=== PATIENT | male | born 1930 | race Caucasian/White ===

== ENCOUNTER 2016-06-09 07:03 | Inpatient (IN) | payer MEDICARE, OTHER ==
[2016-06-09] MEDS ORDERED: Albuterol/Ipratropium 3.0-0.5 MG/3 ML Neb Soln ONE (07:14)
[2016-06-09] MEDS ORDERED: Acetaminophen 500 MG Tab PO ONE (07:15)
[2016-06-09] MEDS ORDERED: Albuterol/Ipratropium 3.0-0.5 MG/3 ML Neb Soln NEB ONE (07:20)
[2016-06-09] MEDS ORDERED: Sodium Chloride 0.9% 1,000 ML IV ONE (07:40)
--- NOTE | 2016-06-09 07:53 | EDM.PDOC ---
ED HPI GENERAL MEDICAL PROBLEM - General Chief Complaint: General Stated Complaint: SOB Time Seen by Provider: 06/09/16 07:40 Source of Information: Reports: Patient History Limitations: Reports: No limitations - History of Present Illness INITIAL COMMENTS - FREE TEXT/NARRATIVE: History of present illness: [86-year-old male presenting with complaints of shortness of breath, fever, and general feelings of being unwell. 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 Patient also has a history of respiratory compromise you very to a caustic lung exposure several decades ago] Review of systems: As per history of present illness and below otherwise all systems reviewed and negative. Past medical history: As per history of present illness and as reviewed below otherwise noncontributory. Surgical history: As per history of present illness and as reviewed below otherwise noncontributory. Social history: No reported history of drug or alcohol abuse. Family history: As per history of present illness and as reviewed below otherwise noncontributory. Physical exam: HEENT: Atraumatic, normocephalic, pupils reactive, negative for conjunctival pallor or scleral icterus, mucous membranes moist, throat clear, neck supple, nontender, trachea midline. Lungs: Clear to auscultation, breath sounds diminished throughout but equal bilaterally, chest nontender. Heart: S1S2, regular, negative for clicks, rubs, or JVD. Abdomen: Soft, nondistended, nontender. Negative for masses or hepatosplenomegaly. Negative for costovertebral tenderness. Pelvis: Stable nontender. Genitourinary: Deferred. Rectal: Deferred. Extremities: Atraumatic, negative for cords or calf pain. Neurovascular unremarkable. Neuro: Awake, alert, oriented. Cranial nerves II through XII unremarkable. Cerebellum unremarkable. Motor and sensory unremarkable throughout. Exam nonfocal. Upon entry patients requiring 6 L of O2 via nasal cannula to maintain sats in the 90s. Patient noted having minimal increase in his troponin was initial check recheck indicates A. minimal decrease but no elevation x-ray return with signs of pneumonia patient requiring oxygen to stay greater than 90 percentile unable to sustain greater than 90% on room air decision to admit to inpatient status placed on O2 requirements that are not patient's baseline. Diagnostics: [CBC, CMP, troponin, lactic acid, LDH, EKG, chest x-ray, EKG, blood cultures x2, ] Therapeutics: [DuoNeb, Tylenol] Impression: [Right middle lobe pneumonia] Plan: [Admit to] Definitive disposition and diagnosis as appropriate pending reevaluation and review of above. - Related Data Allergies Allergy/AdvReac Type Severity Reaction Status Date / Time Penicillins Allergy Cannot Verified 06/09/16 07:56 Remember Home Meds: Home Meds Aspirin [Adult Low Dose Aspirin EC] 81 mg PO DAILY 04/09/13 [History] Budesonide/Formoterol [Symbicort 160-4.5 Mcg Inhaler] 1 puff INH ASDIRECTED PRN 04/09/13 [History] Lisinopril [Prinivil] 2.5 mg PO DAILY 04/09/13 [History] Metoprolol Succinate 25 mg PO DAILY 04/09/13 [History] Omeprazole 20 mg PO DAILY PRN 04/09/13 [History] Pyridostigmine [Mestinon] 60 mg PO TID 04/09/13 [History] Simvastatin [Zocor] 10 mg PO BEDTIME 04/09/13 [History] Montelukast Sodium [Singulair] 10 mg PO DAILY 05/24/16 [History] Fluticasone Propionate [Allergy Relief] 1 spray IN BID PRN 06/09/16 [History] Lysine HCl [l-Lysine] 500 mg PO DAILY 06/09/16 [History] Promethazine HCl/Codeine [Prometh-Codein 6.25-10 mg/5 ml] 10 - 15 ml PO Q4H PRN 06/09/16 [History] Ubidecarenone [Coq-10] 100 mg PO DAILY 06/09/16 [History] Warfarin [Coumadin] 4.5 mg PO MOWETHFRSA 06/09/16 [History] Warfarin [Coumadin] 6 mg PO SUTU 06/09/16 [History] guaiFENesin/Dextromethorphan [Tussin DM Cough & Chest] 5 ml PO Q4H PRN 06/09/16 [History] Social & Family History - Tobacco Use Smoking Status *Q: Never Smoker Second Hand Smoke Exposure: No - Caffeine Use Caffeine Use: Reports: Coffee - Alcohol Use Days Per Week of Alcohol Use: 1 Number of Drinks Per Day: 1 Total Drinks Per Week: 1 - Recreational Drug Use Recreational Drug Use: No ED ROS GENERAL - Review of Systems Review Of Systems: See Below (See history of present illness) ED EXAM, GENERAL - Physical Exam Exam: See Below (See history of present illness) Course - Vital Signs Last Recorded V/S: Last Vital Signs Temp 37.6 C 06/09/16 10:39 Pulse 97 06/09/16 10:39 Resp 20 06/09/16 10:39 BP 124/69 06/09/16 08:58 Pulse Ox 86 L 06/09/16 10:47 - Orders/Labs/Meds Orders: Active Orders 24 hr Category Date Time Status EKG Documentation Completion [RC] STAT Care 06/09/16 07:12 Active RT Aerosol Therapy [RC] ASDIRECTED Care 06/09/16 07:42 Active Chest 2V [CR] Stat Exams 06/09/16 07:12 Taken CULTURE BLOOD [BC] Stat Lab 06/09/16 07:30 Received CULTURE BLOOD [BC] Stat Lab 06/09/16 07:40 Received Ibuprofen [Motrin] Med 06/09/16 09:28 Active 600 mg PO Q6H PRN Sodium Chloride 0.9% [Normal Saline] 1,000 ml Med 06/09/16 07:40 Active IV STAT Blood Culture x2 Reflex Set [OM.PC] Stat Oth 06/09/16 07:12 Ordered Medication Orders Sodium Chloride (Normal Saline) 1,000 mls @ 100 mls/hr IV STAT ONE Stop: 06/09/16 17:39 Last Admin: 06/09/16 07:44 Dose: 100 mls/hr Ibuprofen (Motrin) 600 mg PO Q6H PRN PRN Reason: Fever Last Admin: 06/09/16 10:12 Dose: 600 mg Labs: Laboratory Tests 06/09/16 06/09/16 06/09/16 Range/Units 07:30 07:30 07:30 WBC 11.5 H (5.0-10.0) 10^3/uL RBC 4.57 (4.50-6.00) 10^6/uL Hgb 15.8 (14.0-18.0) g/dL Hct 47.0 (40.0-54.0) % MCV 102.8 H (82.0-94.0) fL MCH 34.6 H (27.0-32.0) pg MCHC 33.6 (33.0-38.0) g/dL RDW Coeff of Vladislav 12.3 (11.0-15.0) % Plt Count 192 (150-400) 10^3/uL MPV 9.2 fL PT 24.5 H (9.7-12.3) SEC INR 2.27 H (0.92-1.18) Sodium 141 (136-145) mEq/L Potassium 4.4 (3.5-5.0) mEq/L Chloride 105 (98-106) mEq/L Carbon Dioxide 28 (21-32) mmol/L BUN 17 (7-18) mg/dL Creatinine 1.1 (0.7-1.3) mg/dL Est Cr Clr Drug Dosing 40.36 mL/min Estimated GFR (MDRD) > 60 (>=60) mL/min Glucose 111 H (75-99) mg/dL Lactic Acid (0.4-2.0) mmol/L Calcium 8.5 (8.4-10.1) mg/dL Magnesium 1.7 L (1.8-2.4) mg/dL Total Bilirubin 1.0 (0.0-1.0) mg/dL AST 19 (15-37) U/L ALT 28 (12-78) U/L Alkaline Phosphatase 55 (46-116) U/L Lactate Dehydrogenase 205 H (100-190) U/L Creatine Kinase 181 (35-232) U/L Troponin I 0.240 H (0.00-0.06) ng/mL Total Protein 6.6 (6.4-8.2) g/dL Albumin 3.0 L (3.4-5.0) g/dL 06/09/16 06/09/16 Range/Units 07:30 10:35 WBC (5.0-10.0) 10^3/uL RBC (4.50-6.00) 10^6/uL Hgb (14.0-18.0) g/dL Hct (40.0-54.0) % MCV (82.0-94.0) fL MCH (27.0-32.0) pg MCHC (33.0-38.0) g/dL RDW Coeff of Vladislav (11.0-15.0) % Plt Count (150-400) 10^3/uL MPV fL PT (9.7-12.3) SEC INR (0.92-1.18) Sodium (136-145) mEq/L Potassium (3.5-5.0) mEq/L Chloride (98-106) mEq/L Carbon Dioxide (21-32) mmol/L BUN (7-18) mg/dL Creatinine (0.7-1.3) mg/dL Est Cr Clr Drug Dosing mL/min Estimated GFR (MDRD) (>=60) mL/min Glucose (75-99) mg/dL Lactic Acid 1.6 (0.4-2.0) mmol/L Calcium (8.4-10.1) mg/dL Magnesium (1.8-2.4) mg/dL Total Bilirubin (0.0-1.0) mg/dL AST (15-37) U/L ALT (12-78) U/L Alkaline Phosphatase (46-116) U/L Lactate Dehydrogenase (100-190) U/L Creatine Kinase 170 (35-232) U/L Troponin I 0.238 H (0.00-0.06) ng/mL Total Protein (6.4-8.2) g/dL Albumin (3.4-5.0) g/dL Meds: Medications Generic Name Dose Route Start Last Admin Trade Name Freq PRN Reason Stop Dose Admin Sodium Chloride 1,000 mls @ 100 mls/hr 06/09/16 07:40 06/09/16 07:44 Normal Saline IV 06/09/16 17:39 100 mls/hr STAT ONE Administration Ibuprofen 600 mg 06/09/16 09:28 06/09/16 10:12 Motrin PO 600 mg Q6H PRN Administration Fever Discontinued Medications Generic Name Dose Route Start Last Admin Trade Name Freq PRN Reason Stop Dose Admin Acetaminophen 1,000 mg 06/09/16 07:15 06/09/16 07:30 Tylenol Extra Strength PO 06/09/16 07:16 1,000 mg ONETIME ONE Administration Albuterol/Ipratropium Confirm 06/09/16 07:14 06/09/16 07:48 Duoneb 3.0-0.5 Mg/3 Ml Administered 06/09/16 07:15 Not Given Dose 3 ml .ROUTE .STK-MED ONE Albuterol/Ipratropium 3 ml 06/09/16 07:20 06/09/16 07:20 Duoneb 3.0-0.5 Mg/3 Ml NEB 06/09/16 07:21 3 ml ONETIME ONE Administration Departure - Departure Time of Disposition: 11:55 Disposition: Admitted As Inpatient 66 Condition: good Clinical Impression: Pneumonia - My Orders Last 24 Hours: My Active Orders 06/09/16 07:12 EKG Documentation Completion [RC] STAT Chest 2V [CR] Stat Blood Culture x2 Reflex Set [OM.PC] Stat 06/09/16 07:30 CULTURE BLOOD [BC] Stat 06/09/16 07:40 CULTURE BLOOD [BC] Stat Sodium Chloride 0.9% [Normal Saline] 1,000 ml IV STAT 06/09/16 07:42 RT Aerosol Therapy [RC] ASDIRECTED 06/09/16 09:28 Ibuprofen [Motrin] 600 mg PO Q6H PRN - Assessment/Plan Last 24 Hours: My Active Orders 06/09/16 07:12 EKG Documentation Completion [RC] STAT Chest 2V [CR] Stat Blood Culture x2 Reflex Set [OM.PC] Stat 06/09/16 07:30 CULTURE BLOOD [BC] Stat 06/09/16 07:40 CULTURE BLOOD [BC] Stat Sodium Chloride 0.9% [Normal Saline] 1,000 ml IV STAT 06/09/16 07:42 RT Aerosol Therapy [RC] ASDIRECTED 06/09/16 09:28 Ibuprofen [Motrin] 600 mg PO Q6H PRN
[2016-06-09 07:57] LABS: CHLORIDE,CL 105 mEq/L (98-106); SODIUM,NA 141 mEq/L (136-145)
[2016-06-09] MEDS ORDERED: Ibuprofen 200 MG Tab PO PRN (09:28)
[2016-06-09] MEDS ORDERED: Fluticasone Propionate Nasal Spray 16 GM Bottle NASBOTH PRN (12:24)
[2016-06-09] MEDS ORDERED: Pantoprazole 40 MG Tab.CR PO PRN (12:24)
[2016-06-09] MEDS ORDERED: Non-Formulary Medication 1 Each (Budesonide/Formoterol 1 PUFF) INH PRN (12:24)
[2016-06-09] MEDS ORDERED: Morphine 2 MG/ML Syringe IVPUSH PRN (12:27)
[2016-06-09] MEDS ORDERED: Albuterol/Ipratropium 3.0-0.5 MG/3 ML Neb Soln NEB SCH (12:27)
[2016-06-09] MEDS ORDERED: Acetaminophen/oxyCODONE 325-5 MG Tab PO PRN (12:27)
[2016-06-09] MEDS ORDERED: Ondansetron 4 MG Tab.DIS PO PRN (12:27)
[2016-06-09] MEDS ORDERED: Docusate Sodium 100 MG Cap PO PRN (12:27)
[2016-06-09] MEDS ORDERED: Levofloxacin/Dextrose 5%-Water 750 MG in Premix Bag 1 BAG IV ONE (12:40)
[2016-06-09] MEDS ORDERED: Formoterol/Mometasone 200-5 MCG 8.8 GM Inhaler IH PRN (12:52)
[2016-06-09] MEDS: Warfarin 2 MG Tab PO SCH (13:00)
[2016-06-09] MEDS: Metoprolol Succinate 25 MG Tab.ER PO SCH (13:01)
[2016-06-09] MEDS: Montelukast 10 MG Tab PO SCH (13:01)
[2016-06-09] MEDS: Lisinopril 5 MG Tab PO SCH (13:02)
[2016-06-09] MEDS: Acetaminophen 325 MG Tab PO PRN ×2 (13:22→19:57)
[2016-06-09] MEDS: Albuterol/Ipratropium 3.0-0.5 MG/3 ML Neb Soln INH SCH ×2 (16:58→20:00)
[2016-06-09] MEDS: Simvastatin 10 MG Tab PO SCH (19:57)
[2016-06-10 07:51] LABS: CHLORIDE,CL 106 mEq/L (98-106); SODIUM,NA 141 mEq/L (136-145)
[2016-06-10] MEDS: Lisinopril 5 MG Tab PO SCH (08:13)
[2016-06-10] MEDS: Montelukast 10 MG Tab PO SCH (08:13)
[2016-06-10] MEDS: Metoprolol Succinate 25 MG Tab.ER PO SCH (08:14)
[2016-06-10] MEDS: Non-Formulary Medication 1 Each (Pyridostigmine 60 MG) PO SCH ×3 (08:26→19:46)
[2016-06-10] MEDS: Levofloxacin/Dextrose 5%-Water 500 MG in Premix Bag 1 BAG IV SCH (08:26)
[2016-06-10] MEDS ORDERED: Nystatin Crm 30 GM Tube TOP SCH (09:00)
[2016-06-10] MEDS: Albuterol/Ipratropium 3.0-0.5 MG/3 ML Neb Soln INH SCH ×4 (09:15→21:19)
--- NOTE | 2016-06-10 11:02 | PN ---
DATE: 06/10/2016 S: Kai Gibson came in with marked shortness of breath, admitted over the weekend with probable pneumonia. O: NECK: Supple. CHEST: Crepitus bilaterally. Cardiac sounds are good. EXTREMITIES: Minimal edema. ASSESSMENT: PNEUMONITIS. I WILL GET APPROPRIATE LAB WORK FOR RECURRENT BLOOD CLOTS AND ALSO A PROBNP FOR CONGESTIVE HEART FAILURE. TC/DOMINGO /[id number]
[2016-06-10] MEDS ORDERED: Warfarin 2.5 MG Tab PO SCH (12:00)
[2016-06-10] MEDS ORDERED: Warfarin 2 MG Tab PO SCH (12:00)
[2016-06-10] MEDS: Acetaminophen 325 MG Tab PO PRN (19:45)
[2016-06-10] MEDS: Simvastatin 10 MG Tab PO SCH (19:46)
[2016-06-10] MEDS: Codeine/Promethazine 10-6.25 MG/5 ML Syrup 5 ML UD Cup PO PRN (23:52)
[2016-06-11] MEDS: Metoprolol Succinate 25 MG Tab.ER PO SCH (07:37)
[2016-06-11] MEDS: Montelukast 10 MG Tab PO SCH (07:37)
[2016-06-11] MEDS: Lisinopril 5 MG Tab PO SCH (07:37)
[2016-06-11] MEDS: Non-Formulary Medication 1 Each (Pyridostigmine 60 MG) PO SCH ×3 (07:38→19:35)
[2016-06-11] MEDS: Levofloxacin/Dextrose 5%-Water 500 MG in Premix Bag 1 BAG IV SCH (07:38)
[2016-06-11 07:42] LABS: CHLORIDE,CL 107 mEq/L (98-106); SODIUM,NA 141 mEq/L (136-145)
--- NOTE | 2016-06-11 09:20 | PN ---
DATE: 06/11/2016 S: Kai comes in with a pneumonitis. He says he feels better today. O: NECK: Supple. CHEST: Crepitus, left lower base. CARDIAC: Sounds are good. No edema. ASSESSMENT: PNEUMONITIS, IMPROVING. C-REACTIVE PROTEIN IS UP A LITTLE BIT. WE WILL LOOK AT THAT AGAIN TODAY TO SEE IF IT HAS DROPPED. CLINICALLY, HE IS BETTER. TC/DOMINGO /[id number]
[2016-06-11] MEDS: Albuterol/Ipratropium 3.0-0.5 MG/3 ML Neb Soln INH SCH ×4 (09:40→20:56)
[2016-06-11] MEDS: Codeine/Promethazine 10-6.25 MG/5 ML Syrup 5 ML UD Cup PO PRN (10:07)
[2016-06-11] MEDS: Warfarin 2 MG Tab PO SCH (11:44)
[2016-06-11] MEDS: Acetaminophen 325 MG Tab PO PRN (17:20)
[2016-06-11] MEDS ORDERED: Calcium Carbonate 500 MG Tab.Chew PO PRN (19:31)
[2016-06-11] MEDS: Simvastatin 10 MG Tab PO SCH (19:36)
[2016-06-12] MEDS: Metoprolol Succinate 25 MG Tab.ER PO SCH (07:28)
[2016-06-12] MEDS: Lisinopril 5 MG Tab PO SCH (07:28)
[2016-06-12] MEDS: Non-Formulary Medication 1 Each (Pyridostigmine 60 MG) PO SCH (07:29)
[2016-06-12] MEDS: Montelukast 10 MG Tab PO SCH (07:29)
[2016-06-12] MEDS: Levofloxacin/Dextrose 5%-Water 500 MG in Premix Bag 1 BAG IV SCH (07:30)
[2016-06-12 07:36] VITALS: BP 125/78
[2016-06-12 07:41] LABS: CHLORIDE,CL 105 mEq/L (98-106); SODIUM,NA 140 mEq/L (136-145)
[2016-06-12] MEDS: Albuterol/Ipratropium 3.0-0.5 MG/3 ML Neb Soln INH SCH (08:54)
--- NOTE | 2016-06-13 07:33 | DISCH ---
Kai Gibson, this gentleman came in markedly short of breath. Made diagnosis of pneumonitis in the hospital, started on IV antibiotics and RT treatments. At the time of discharge, he was afebrile, lungs were relatively clear. Said he felt great. He was off oxygen. Lab here in the hospital, CBC white count elevated on admission, returned to normal. INRs were adequate for his pulmonary emboli. Blood sugars were good. Panel-8 looked good. C-reactive protein was 18.2, it did drop to 8.5 prior to discharge. Urinalysis looked good. DISPOSITION: The patient now discharged home. We will see him back in the clinic next Friday for an INR. DISCHARGE MEDICATIONS: Home medications plus Levaquin 500 mg daily for 7 days. DISCHARGE DIAGNOSIS: 1. PNEUMONITIS. 2. MYASTHENIA GRAVIS. 3. HYPERTENSION. 4. HYPERLIPIDEMIA. 5. HISTORY OF PULMONARY EMBOLUS. 6. TROPONINS ARE MOST LIKELY ELEVATED FROM HIS PNEUMONIA BECAUSE HE HAD NO CARDIAC PROBLEMS AT ALL. PROBNP WAS NORMAL. TC/DOMINGO /[id number]
== END 2016-06-12 11:30 | disposition home or self-care (01) | DRG 195 ==
LOC: CC.ED 07:03 → CC.MS 11:05 → UNDOADMIN 11:05 → CC.MS 11:55
PROVIDERS: ADMIT Nurse Practitioner Family; ATTEND General Practice
DX: J18.9 Pneumonia, unspecified organism (principal); I10 Essential (primary) hypertension; R77.8 Other specified abnormalities of plasma proteins; I25.2 Old myocardial infarction; R06.02 Shortness of breath; R50.9 Fever, unspecified; Z86.711 Personal history of pulmonary embolism; E78.5 Hyperlipidemia, unspecified; G70.00 Myasthenia gravis without (acute) exacerbation; Z79.82 Long term (current) use of aspirin; Z79.01 Long term (current) use of anticoagulants; Z88.0 Allergy status to penicillin
CPT/HCPCS: 36415; 71020; 80053; 82550 ×2; 83605; 83615; 83735; 84484 ×2; 85027; 85610; 87040 ×2; 87804 ×2; 93005; 96360; 96361; 99285; A9270 ×2; J7030; 80048; 81001; 83880; 85025; 85379; 86140; 93010; 94640; 94640-76; 94667; 94668; 94760; 97110-GP; 97161-GP; J1956

== ENCOUNTER 2017-03-17 15:27 | Inpatient (IN) | payer MEDICARE, OTHER ==
[2017-03-17] MEDS ORDERED: Acetaminophen 325 MG Tab PO PRN (15:39)
[2017-03-17] MEDS ORDERED: Magnesium Hydroxide 400 MG/5 ML Susp 30 ML Cup PO PRN (15:39)
[2017-03-17] MEDS ORDERED: Ondansetron 4 MG/2 ML SDV IV PRN (15:39)
[2017-03-17] MEDS ORDERED: Sodium Chloride 0.9% 10 ML Syringe FLUSH PRN (15:39)
[2017-03-17] MEDS ORDERED: Temazepam 15 MG Cap PO PRN (15:39)
[2017-03-17 16:29] LABS: CHLORIDE,CL 105 mEq/L (98-106); SODIUM,NA 142 mEq/L (136-145)
[2017-03-17] MEDS: Furosemide 100 MG/10 ML SDV IVPUSH SCH (17:05)
[2017-03-17] MEDS: methylPREDNISolone Sodium Succinate 125 MG/2 ML SDV IVPUSH SCH (17:07)
[2017-03-17] MEDS: cefTRIAXone 1 GM Vial IVPUSH SCH (17:07)
[2017-03-17] MEDS: Azithromycin 500 MG in Sodium Chloride 0.9% 250 ML IV SCH (17:07)
[2017-03-17] MEDS ORDERED: Albuterol 8 GM Inhaler INH PRN (17:31)
[2017-03-17] MEDS ORDERED: Pantoprazole 40 MG Tab.CR PO PRN (17:31)
[2017-03-17] MEDS ORDERED: Codeine/Promethazine 10-6.25 MG/5 ML Syrup 5 ML UD Cup PO PRN (17:31)
[2017-03-17] MEDS ORDERED: Nitroglycerin 0.4 MG Tab.SL SL PRN (17:31)
[2017-03-17] MEDS: Simvastatin 10 MG Tab PO SCH (19:47)
[2017-03-17] MEDS: PYRIDOSTIGMINE 60 MG PO SCH (19:49)
[2017-03-17] MEDS: Albuterol/Ipratropium 3.0-0.5 MG/3 ML Neb Soln INH SCH (20:27)
[2017-03-17] MEDS: Formoterol/Mometasone 200-5 MCG 8.8 GM Inhaler IH SCH (20:38)
[2017-03-18] MEDS ORDERED: Warfarin 2.5 MG Tab PO SCH (08:00)
[2017-03-18] MEDS ORDERED: LYSINE HCL 1000 MG PO SCH (08:00)
[2017-03-18] MEDS: Furosemide 100 MG/10 ML SDV IVPUSH SCH ×2 (09:41→16:48)
[2017-03-18] MEDS: Losartan 25 MG Tab PO SCH (09:41)
[2017-03-18] MEDS: Fluticasone Propionate Nasal Spray 16 GM Bottle NASBOTH SCH (09:41)
[2017-03-18] MEDS: Aspirin 81 MG Tab.EC PO SCH (09:41)
[2017-03-18] MEDS: Cholecalciferol (Vitamin D3) 1,000 Unit Tab PO SCH (09:41)
[2017-03-18] MEDS: Montelukast 10 MG Tab PO SCH (09:41)
[2017-03-18] MEDS: Metoprolol Succinate 25 MG Tab.ER PO SCH (09:41)
[2017-03-18] MEDS: Albuterol/Ipratropium 3.0-0.5 MG/3 ML Neb Soln INH SCH ×4 (09:41→20:18)
[2017-03-18] MEDS: Formoterol/Mometasone 200-5 MCG 8.8 GM Inhaler IH SCH ×2 (09:41→20:18)
[2017-03-18] MEDS: Warfarin 2 MG Tab PO SCH (12:06)
[2017-03-18] MEDS: Warfarin 2.5 MG Tab PO SCH (12:06)
[2017-03-18 13:57] LABS: CHLORIDE,CL 104 mEq/L (98-106); SODIUM,NA 141 mEq/L (136-145)
[2017-03-18] MEDS: PYRIDOSTIGMINE 60 MG PO SCH ×3 (14:22→20:18)
[2017-03-18] MEDS: UBIDECARENONE 100 MG PO SCH (14:23)
[2017-03-18] MEDS: cefTRIAXone 1 GM Vial IVPUSH SCH (16:48)
[2017-03-18] MEDS: methylPREDNISolone Sodium Succinate 125 MG/2 ML SDV IVPUSH SCH (16:48)
[2017-03-18] MEDS: Azithromycin 500 MG in Sodium Chloride 0.9% 250 ML IV SCH (17:05)
[2017-03-18] MEDS: Simvastatin 10 MG Tab PO SCH (20:18)
[2017-03-19] MEDS: Furosemide 100 MG/10 ML SDV IVPUSH SCH (07:35)
[2017-03-19] MEDS: Cholecalciferol (Vitamin D3) 1,000 Unit Tab PO SCH (07:36)
[2017-03-19] MEDS: Montelukast 10 MG Tab PO SCH (07:36)
[2017-03-19] MEDS: Aspirin 81 MG Tab.EC PO SCH (07:37)
[2017-03-19] MEDS: Losartan 25 MG Tab PO SCH (07:37)
[2017-03-19] MEDS: Metoprolol Succinate 25 MG Tab.ER PO SCH (07:37)
[2017-03-19] MEDS: Albuterol/Ipratropium 3.0-0.5 MG/3 ML Neb Soln INH SCH ×4 (07:37→20:45)
[2017-03-19] MEDS: Formoterol/Mometasone 200-5 MCG 8.8 GM Inhaler IH SCH ×2 (07:38→20:45)
[2017-03-19] MEDS: PYRIDOSTIGMINE 60 MG PO SCH ×3 (07:39→20:46)
[2017-03-19] MEDS: UBIDECARENONE 100 MG PO SCH (07:43)
[2017-03-19] MEDS: Fluticasone Propionate Nasal Spray 16 GM Bottle NASBOTH SCH (07:47)
--- NOTE | 2017-03-19 08:20 | PN ---
DATE: 03/18/2017 S: Kai Gibson came in with severe shortness of breath and made diagnosis of bronchiolitis, probable left ventricular systolic congestive heart failure. O: On examination, NECK: Supple. CHEST: Wheezing much better. Peripheral edema is down. Cardiac sounds are better. 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 P: Continue present therapy. TC/DOMINGO /[id number]
[2017-03-19] MEDS: Warfarin 2.5 MG Tab PO SCH (11:28)
[2017-03-19] MEDS: Warfarin 2 MG Tab PO SCH (11:28)
--- NOTE | 2017-03-19 11:59 | PN ---
DATE: 03/19/2017 S: Kai Gibson is in with left ventricular systolic congestive heart failure, bronchiolitis. He says he feels much better today. O: NECK: Supple. CHEST: Occasional wheeze. CARDIAC: Sounds are good. EXTREMITIES: Edema has almost gone. ASSESSMENT: LEFT VENTRICULAR CONGESTIVE HEART FAILURE, BRONCHIOLITIS. P: Continue IV therapy. TC/DOMINGO /[id number]
[2017-03-19] MEDS: cefTRIAXone 1 GM Vial IVPUSH SCH (15:57)
[2017-03-19] MEDS: methylPREDNISolone Sodium Succinate 125 MG/2 ML SDV IVPUSH SCH (15:57)
[2017-03-19] MEDS: Azithromycin 500 MG in Sodium Chloride 0.9% 250 ML IV SCH (15:57)
[2017-03-19] MEDS: Simvastatin 10 MG Tab PO SCH (20:45)
[2017-03-20] MEDS: Aspirin 81 MG Tab.EC PO SCH (07:37)
[2017-03-20] MEDS: Cholecalciferol (Vitamin D3) 1,000 Unit Tab PO SCH (07:37)
[2017-03-20] MEDS: Montelukast 10 MG Tab PO SCH (07:38)
[2017-03-20] MEDS: Losartan 25 MG Tab PO SCH (07:38)
[2017-03-20] MEDS: Metoprolol Succinate 25 MG Tab.ER PO SCH (07:38)
[2017-03-20] MEDS: Fluticasone Propionate Nasal Spray 16 GM Bottle NASBOTH SCH (07:39)
[2017-03-20] MEDS: PYRIDOSTIGMINE 60 MG PO SCH (07:39)
[2017-03-20] MEDS: Albuterol/Ipratropium 3.0-0.5 MG/3 ML Neb Soln INH SCH (07:39)
[2017-03-20] MEDS: Formoterol/Mometasone 200-5 MCG 8.8 GM Inhaler IH SCH (07:39)
[2017-03-20 07:43] VITALS: BP 119/76
[2017-03-20] MEDS: UBIDECARENONE 100 MG PO SCH (07:43)
[2017-03-20] MEDS ORDERED: Furosemide 100 MG/10 ML SDV IVPUSH SCH (08:00)
--- NOTE | 2017-03-20 09:44 | DISCH ---
HISTORY OF PRESENT ILLNESS: Kai Gibson is an elderly gentleman who came in with +3 pretibial edema and short of breath and made diagnosis of left ventricular systolic congestive heart failure, early bronchiolitis, been now started on antibiotics and IV Lasix, responded nicely. At the time of discharge, his lungs were totally clear. Cardiac sounds were good and his peripheral edema was gone. He was down about approximately 15 pounds. He did do an echocardiogram here in the hospital, ejection fraction good at 55%, moderate aortic regurgitation, which we will have to follow. Chest x-ray showed no acute changes. LABORATORY DATA: Labs here in the hospital, CBC looked good. Panel-8 looked good. Creatinine mildly elevated at 1.5. ProBNP was elevated. Thyroid: Normal C-reactive protein, good. Urine was good. Digoxin was 0.2. DISPOSITION: The patient is now discharged home. We will see him back in the clinic next and do appropriate lab work. DISCHARGE MEDICATIONS: Home medications plus Lasix 40 mg p.o. daily for now. DISCHARGE DIAGNOSIS: 1. LEFT VENTRICULAR SYSTOLIC CONGESTIVE HEART FAILURE. 2. ASTHMA WITH BRONCHIOLITIS. 3. HYPERTENSION. 4. MYASTHENIA GRAVIS. 5. HYPERLIPIDEMIA. 6. CORONARY ARTERY DISEASE. TC/DOMINGO /[id number]
== END 2017-03-20 09:30 | disposition home or self-care (01) | DRG 202 ==
LOC: CC.MS 15:33 → UNDOADMIN 15:33 → CC.MS 15:40 → EDSTATUS 03-30 15:08
PROVIDERS: ADMIT General Practice; ATTEND General Practice
DX: J21.9 Acute bronchiolitis, unspecified (principal); E27.40 Unspecified adrenocortical insufficiency; I50.20 Unspecified systolic (congestive) heart failure; I25.10 Atherosclerotic heart disease of native coronary artery without angina pectoris; G70.00 Myasthenia gravis without (acute) exacerbation; R53.83 Other fatigue; J45.909 Unspecified asthma, uncomplicated; R60.9 Edema, unspecified; Z88.0 Allergy status to penicillin; Z79.01 Long term (current) use of anticoagulants; Z79.82 Long term (current) use of aspirin; Z79.899 Other long term (current) drug therapy; I11.0 Hypertensive heart disease with heart failure; Z86.711 Personal history of pulmonary embolism
CPT/HCPCS: 36415; 71020; 80048; 80053; 80162; 81001; 82607; 82746; 83735; 83880; 84443; 85025; 85379; 85610; 86140; 87070; 87205; 93005; 93306; 94640; A9270-GY; G0365; J0456; J0696; J1940; J2930; J7050

== ENCOUNTER 2017-12-27 04:20 | Inpatient (IN) | payer MEDICARE, OTHER ==
[2017-12-27] MEDS ORDERED: Acetaminophen 500 MG Tab PO ONE (04:46)
[2017-12-27] MEDS ORDERED: Albuterol/Ipratropium 3.0-0.5 MG/3 ML Neb Soln NEB ONE (04:49)
--- NOTE | 2017-12-27 04:54 | EDM.PDOC ---
ED HPI GENERAL MEDICAL PROBLEM - General Chief Complaint: Respiratory Problem Stated Complaint: SOB, cough Time Seen by Provider: 12/27/17 04:42 Source of Information: Reports: Patient, Significant Other History Limitations: Reports: Altered Mental Status, Other (Patient and not great historians. Both seem to have conflicting stories of HPI. does know his medications.) - History of Present Illness INITIAL COMMENTS - FREE TEXT/NARRATIVE: This patient is an 87 year old male that presents to the ER. Patient is poor historian of HPI. also not able to recall exact days of HPI. The initial HPI reports is that the patient began with cough a "long time ago." She reports that on Friday he had a cold. Patient reports the patient on , had an out patient CXR, but not seen. She reports a CXR was performed , but she does not know the results. The patient reports that the patient was not placed on abx tx. The reports then this morning at 2:30am the patient was short of breath and could not breath so she brought him to the ER. The patient reprots having runny nose, congestion, shortness of breath. He reports feeling like he has a fever, generally weak, just not feeling well. After initial assessment and History taking, the daughter arrives and reports the patient had a CXR and he has not been feeling well since then, that she nows of. Onset Date: 12/22/17 Duration: Day(s): (5) Location: Reports: Chest Severity: Moderate Worsens with: Reports: None Associated Symptoms: Reports: Confusion, Cough, cough w sputum, Fever/Chills, Loss of Appetite, Malaise, Shortness of Breath, Weakness (generally). Denies: Chest Pain, Diaphoresis, Headaches, Nausea/Vomiting, Rash, Seizure, Syncope - Related Data Allergies Allergy/AdvReac Type Severity Reaction Status Date / Time Penicillins Allergy Cannot Verified 12/27/17 04:21 Remember Home Meds: Home Meds Aspirin [Adult Low Dose Aspirin EC] 81 mg PO DAILY 04/09/13 [History] Budesonide/Formoterol [Symbicort 160-4.5 MCG] 2 puff INH BID 04/09/13 [History] Metoprolol Succinate 25 mg PO DAILY 04/09/13 [History] Omeprazole 20 mg PO DAILY PRN 04/09/13 [History] Pyridostigmine [Mestinon] 60 mg PO TID 04/09/13 [History] Simvastatin [Zocor] 10 mg PO BEDTIME 04/09/13 [History] Montelukast Sodium [Singulair] 10 mg PO DAILY 05/24/16 [History] Albuterol/Ipratropium [DuoNeb 3.0-0.5 MG/3 ML] 1 inh INH Q4H PRN 06/09/16 [ History] Lysine HCl [l-Lysine] 1,000 mg PO DAILY 06/09/16 [History] Promethazine HCl/Codeine [Prometh-Codein 6.25-10 mg/5 ml] 5 - 10 ml PO Q4H PRN 06/09/16 [History] Ubidecarenone [Coq-10] 100 mg PO DAILY 06/09/16 [History] Albuterol [Ventolin HFA] 2 puff INH QID PRN 03/17/17 [History] Cholecalciferol (Vitamin D3) [Vitamin D3] 5,000 unit PO DAILY 03/17/17 [History] Nitroglycerin 0.4 mg SL ASDIRECTED PRN 03/17/17 [History] Furosemide [Lasix] 40 mg PO DAILY #30 tablet 03/20/17 [Rx] Albuterol Sulfate [Proair Hfa] 2 puff INH QID PRN 12/27/17 [History] Oxymetazoline HCl [Afrin] 1 inh INH DAILY 12/27/17 [History] Warfarin [Coumadin] 4.5 mg PO DAILY 12/27/17 [History] Past Medical History HEENT History: Reports: Impaired Vision Cardiovascular History: Reports: CAD, High Cholesterol, Hypertension, NV, SOB on Exertion, Stents Respiratory History: Reports: Asthma, PE, SOB Genitourinary History: Reports: BPH Musculoskeletal History: Reports: Arthritis, Back Pain, Chronic - Past Surgical History Cardiovascular Surgical History: Reports: Coronary Artery Stent GI Surgical History: Reports: Cholecystectomy Musculoskeletal Surgical History: Reports: Shoulder Replacement Social & Family History - Family History Family Medical History: Noncontributory - Tobacco Use Smoking Status *Q: Never Smoker - Caffeine Use Caffeine Use: Reports: Coffee - Recreational Drug Use Recreational Drug Use: No ED ROS GENERAL - Review of Systems Review Of Systems: See Below Constitutional: Reports: Fever, Chills, Malaise, Weakness (generalized), Fatigue , Decreased Appetite HEENT: Reports: Rhinitis, Sinus Problem Respiratory: Reports: Shortness of Breath, Wheezing, Cough, Sputum Cardiovascular: Reports: No Symptoms. Denies: Edema, Syncope Endocrine: Reports: No Symptoms GI/Abdominal: Reports: No Symptoms : Reports: No Symptoms Musculoskeletal: Reports: No Symptoms Skin: Reports: No Symptoms Neurological: Reports: Confusion (Patient knows self and place. However, year he says 1940.) Psychiatric: Reports: No Symptoms Hematologic/Lymphatic: Reports: No Symptoms Immunologic: Reports: No Symptoms ED EXAM, GENERAL - Physical Exam Exam: See Below Exam Limited By: No Limitations General Appearance: Alert, WD/WN, Mild Distress Eye Exam: Bilateral Eye: Normal Inspection, PERRL Ears: Normal External Exam, Normal Canal, Hearing Grossly Normal, Normal TMs Ear Exam: Bilateral Ear: Auricle Normal, Canal Normal, TM normal Nose: Normal Inspection, Normal Mucosa, No Blood Throat/Mouth: Normal Inspection, Normal Lips, Normal Gums, Normal Oropharynx, Normal Voice, No Airway Compromise Head: Atraumatic, Normocephalic Neck: Normal Inspection, Supple, Non-Tender, Full Range of Motion Respiratory/Chest: No Accessory Muscle Use, Chest Non-Tender, Decreased Breath Sounds (moderate throughout), Crackles (BLL), Wheezing (expiratory throughout), Other (The patient is conversing in full and complete sentences with some difficulty, does cough frequently. Equal chest rise. ). No: Accessory Muscle Use, Retractions, Splinting Cardiovascular: No Edema, No JVD, Tachycardia (104 on exam), Systolic Murmur Peripheral Pulses: 2+: Radial (L), Radial (R), Posterior Tibial (L), Posterior Tibial (R), Dorsalis Pedis (L), Dorsalis Pedis (R) GI/Abdominal: Soft, Non-Tender, No Organomegaly, No Distention, No Abnormal Bruit, No Mass, Pelvis Stable Back Exam: Normal Inspection, Full Range of Motion Extremities: Normal Inspection, Normal Range of Motion, Non-Tender, No Pedal Edema, Normal Capillary Refill Neurological: Alert, Confused (Oriented to self and place. Not year. ) Psychiatric: Normal Affect, Normal Mood Skin Exam: Warm, Dry, Intact, Normal Color, Rash (erythema rash to back and abd. blanches. ) Lymphatic: No Adenopathy Course - Vital Signs Last Recorded V/S: Last Vital Signs Temp 99.1 F 12/28/17 16:00 Pulse 77 12/28/17 16:00 Resp 20 12/28/17 16:00 BP 109/78 12/28/17 16:00 Pulse Ox 95 12/28/17 16:00 - Orders/Labs/Meds Orders: Medication Orders Acetaminophen (Tylenol) 650 mg PO Q4H PRN PRN Reason: Pain (Mild 1-3)/fever Albuterol (Ventolin Hfa) 1 - 2 gm INH QID PRN PRN Reason: Shortness of Breath Albuterol/Ipratropium (Duoneb 3.0-0.5 Mg/3 Ml) 3 ml NEB Q4H PRN PRN Reason: Shortness Of Breath/wheezing Albuterol/Ipratropium (Duoneb 3.0-0.5 Mg/3 Ml) 3 ml NEB QID [facility] Last Admin: 12/28/17 15:57 Dose: 3 ml Admin: 12/28/17 12:07 Dose: 3 ml Admin: 12/28/17 07:47 Dose: 3 ml Admin: 12/27/17 19:26 Dose: 3 ml Admin: 12/27/17 16:02 Dose: 3 ml Admin: 12/27/17 12:13 Dose: 3 ml Admin: 12/27/17 07:57 Dose: 3 ml Aspirin (Halfprin) 81 mg PO DAILY [facility] Last Admin: 12/28/17 07:43 Dose: 81 mg Admin: 12/27/17 08:08 Dose: 81 mg Ceftriaxone Sodium (Rocephin) 1 gm IVPUSH DAILY [facility] Last Admin: 12/28/17 07:36 Dose: 1 gm Cholecalciferol (Vitamin D3) 5,000 units PO DAILY [facility] Last Admin: 12/28/17 07:45 Dose: 5,000 units Docusate Sodium (Colace) 100 mg PO BID PRN PRN Reason: Constipation Furosemide (Lasix) 40 mg PO DAILY [facility] Last Admin: 12/28/17 07:43 Dose: 40 mg Admin: 12/27/17 09:03 Dose: 40 mg Guaifenesin/Codeine Phosphate (Robitussin Ac) 5 ml PO Q6H PRN PRN Reason: Cough Azithromycin 500 mg/ Sodium (Chloride) 250 mls @ 250 mls/hr IV DAILY [facility] Last Admin: 12/28/17 07:40 Dose: 250 mls/hr Ibuprofen (Motrin) 600 mg PO Q6H PRN PRN Reason: Pain (mild 1-3) Last Admin: 12/28/17 12:51 Dose: 600 mg Admin: 12/27/17 08:15 Dose: 600 mg Methylprednisolone Sodium Succinate (Solu-Medrol) 62.5 mg IVPUSH Q12H [facility] Last Admin: 12/28/17 17:24 Dose: 62.5 mg Metoprolol Succinate (Toprol Xl) 25 mg PO DAILY [facility] Last Admin: 12/28/17 09:54 Dose: 25 mg Admin: 12/27/17 09:03 Dose: Not Given Mometasone Furoate/Formoterol Fumar (Dulera 200-5 Mcg) 2 puff IH BIDRT [facility] Last Admin: 12/28/17 07:47 Dose: 2 puff Admin: 12/27/17 20:10 Dose: Not Given Montelukast Sodium (Singulair) 10 mg PO DAILY [facility] Last Admin: 12/28/17 07:45 Dose: 10 mg Admin: 12/27/17 08:04 Dose: 10 mg Nitroglycerin (Nitrostat) 0.4 mg SL ASDIRECTED PRN PRN Reason: Chest Pain Patients Own( Lysine Hcl [L-Lysine ] 1,000 Mg) 1,000 mg PO DAILY [facility] Last Admin: 12/28/17 07:44 Dose: 1,000 mg Admin: 12/27/17 08:04 Dose: 1,000 mg Patients Own ( Pyridostigmine 60 Mg ) 60 mg PO TID [facility] Last Admin: 12/28/17 13:05 Dose: 60 mg Admin: 12/28/17 07:44 Dose: 60 mg Admin: 12/27/17 19:27 Dose: 60 mg Admin: 12/27/17 14:00 Dose: 60 mg Admin: 12/27/17 09:03 Dose: 60 mg Patients Own( Ubidecarenone [Coq- 10] 100 Mg) 100 mg PO DAILY [facility] Last Admin: 12/28/17 07:45 Dose: 100 mg Admin: 12/27/17 08:04 Dose: 100 mg Ondansetron HCl (Zofran) 4 mg IV Q6H PRN PRN Reason: Nausea/Vomiting Oxymetazoline HCl (Afrin Original 0.05% Nasal [place]) 0 ml NASBOTH DAILY [facility] Last Admin: 12/28/17 07:39 Dose: 1 puff Admin: 12/27/17 07:55 Dose: 1 puff Pantoprazole Sodium (Protonix) 40 mg PO DAILY PRN PRN Reason: HEARTBURN Simvastatin (Zocor) 10 mg PO BEDTIME [facility] Last Admin: 12/27/17 19:26 Dose: 10 mg Warfarin Sodium (Coumadin) 2.5 mg PO DAILY@1200 [facility] Last Admin: 12/28/17 12:06 Dose: 2.5 mg Admin: 12/27/17 12:13 Dose: 2.5 mg Warfarin Sodium (Coumadin) 2 mg PO DAILY@1200 [facility] Last Admin: 12/28/17 12:07 Dose: 2 mg Admin: 12/27/17 12:13 Dose: 2 mg Labs: Laboratory Tests 12/27/17 12/27/17 12/27/17 Range/Units 04:34 04:34 04:35 WBC 16.1 H (5.0-10.0) 10^3/uL RBC 4.81 (4.50-6.00) 10^6/uL Hgb 16.0 (14.0-18.0) g/dL Hct 47.8 (40.0-54.0) % MCV 99.4 H (82.0-94.0) fL MCH 33.3 H (27.0-32.0) pg MCHC 33.5 (33.0-38.0) g/dL RDW Coeff of Vladislav 13.1 (11.0-15.0) % Plt Count 212 (150-400) 10^3/uL Neut % (Auto) 85.7 H (35-85) % Lymph % (Auto) 8.0 L (10-55) % [place] % (Auto) 5.6 (0-16) % Eos % (Auto) 0.6 (0-5) % Baso % (Auto) 0.1 (0-3) % Neut # (Auto) 13.80 H (1.80-7.00) 10^3/uL Lymph # (Auto) 1.28 (1.00-4.80) 10^3/uL [place] # (Auto) 0.90 H (0.00-0.80) 10^3/uL Eos # (Auto) 0.10 (0.00-0.45) 10^3/uL Baso # (Auto) 0.01 10^3/uL PT (9.7-12.3) SEC INR (0.92-1.18) Sodium 139 (136-145) mEq/L Potassium 4.1 (3.5-5.0) mEq/L Chloride 102 (98-106) mEq/L Carbon Dioxide 30 (21-32) mmol/L BUN 21 H (7-18) mg/dL Creatinine 1.3 (0.7-1.3) mg/dL Est Cr Clr Drug Dosing 35.47 mL/min Estimated GFR (MDRD) 52 L (>=60) mL/min Glucose 115 H (75-99) mg/dL Lactic Acid 1.4 (0.4-2.0) mmol/L Calcium 8.3 L (8.4-10.1) mg/dL Total Bilirubin 1.2 H (0.0-1.0) mg/dL AST 21 (15-37) U/L ALT 33 (12-78) U/L Alkaline Phosphatase 57 (46-116) U/L C-Reactive Protein 8.0 H (0.2-0.8) mg/dL NT-Pro-B Natriuret Pep 1039 H (0-1000) pg/mL Total Protein 6.6 (6.4-8.2) g/dL Albumin 3.0 L (3.4-5.0) g/dL 12/27/17 Range/Units 04:47 WBC (5.0-10.0) 10^3/uL RBC (4.50-6.00) 10^6/uL Hgb (14.0-18.0) g/dL Hct (40.0-54.0) % MCV (82.0-94.0) fL MCH (27.0-32.0) pg MCHC (33.0-38.0) g/dL RDW Coeff of Vladislav (11.0-15.0) % Plt Count (150-400) 10^3/uL Neut % (Auto) (35-85) % Lymph % (Auto) (10-55) % [place] % (Auto) (0-16) % Eos % (Auto) (0-5) % Baso % (Auto) (0-3) % Neut # (Auto) (1.80-7.00) 10^3/uL Lymph # (Auto) (1.00-4.80) 10^3/uL [place] # (Auto) (0.00-0.80) 10^3/uL Eos # (Auto) (0.00-0.45) 10^3/uL Baso # (Auto) 10^3/uL PT 32.1 H (9.7-12.3) SEC INR 3.38 H (0.92-1.18) Sodium (136-145) mEq/L Potassium (3.5-5.0) mEq/L Chloride (98-106) mEq/L Carbon Dioxide (21-32) mmol/L BUN (7-18) mg/dL Creatinine (0.7-1.3) mg/dL Est Cr Clr Drug Dosing mL/min Estimated GFR (MDRD) (>=60) mL/min Glucose (75-99) mg/dL Lactic Acid (0.4-2.0) mmol/L Calcium (8.4-10.1) mg/dL Total Bilirubin (0.0-1.0) mg/dL AST (15-37) U/L ALT (12-78) U/L Alkaline Phosphatase (46-116) U/L C-Reactive Protein (0.2-0.8) mg/dL NT-Pro-B Natriuret Pep (0-1000) pg/mL Total Protein (6.4-8.2) g/dL Albumin (3.4-5.0) g/dL Meds: Medications Generic Name Dose Route Start Last Admin Trade Name Freq PRN Reason Stop Dose Admin Acetaminophen 650 mg 12/27/17 05:59 Tylenol PO Q4H PRN Pain (Mild 1-3)/fever Albuterol 1 - 2 gm 12/27/17 06:34 Ventolin Hfa INH QID PRN Shortness of Breath Albuterol/Ipratropium 3 ml 12/27/17 05:59 Duoneb 3.0-0.5 Mg/3 Ml NEB Q4H PRN Shortness Of Breath/wheezing Albuterol/Ipratropium 3 ml 12/27/17 08:00 12/28/17 15:57 Duoneb 3.0-0.5 Mg/3 Ml NEB 3 ml QID [facility] Administration Aspirin 81 mg 12/27/17 08:00 12/28/17 07:43 Halfprin PO 81 mg DAILY [facility] Administration Ceftriaxone Sodium 1 gm 12/28/17 08:00 12/28/17 07:36 Rocephin IVPUSH 1 gm DAILY [facility] Administration Cholecalciferol 5,000 units 12/28/17 08:00 12/28/17 07:45 Vitamin D3 PO 5,000 units DAILY [facility] Administration Docusate Sodium 100 mg 12/27/17 05:59 Colace PO BID PRN Constipation Furosemide 40 mg 12/27/17 08:00 12/28/17 07:43 Lasix PO 40 mg DAILY [facility] Administration Guaifenesin/Codeine Phosphate 5 ml 12/27/17 18:14 Robitussin Ac PO Q6H PRN Cough Azithromycin 500 mg/ Sodium 250 mls @ 250 mls/hr 12/28/17 08:00 12/28/17 07: 40 Chloride IV 250 mls/hr DAILY [facility] Administration Ibuprofen 600 mg 12/27/17 05:59 12/28/17 12:51 Motrin PO 600 mg Q6H PRN Administration Pain (mild 1-3) Methylprednisolone Sodium Succinate 62.5 mg 12/28/17 18:00 12/28/17 17:24 Solu-Medrol IVPUSH 62.5 mg Q12H [facility] Administration Metoprolol Succinate 25 mg 12/27/17 08:00 12/28/17 09:54 Toprol Xl PO 25 mg DAILY [facility] Administration Mometasone Furoate/Formoterol Fumar 2 puff 12/27/17 20:00 12/28/17 07:47 Dulera 200-5 Mcg IH 2 puff BIDRT [facility] Administration Montelukast Sodium 10 mg 12/27/17 08:00 12/28/17 07:45 Singulair PO 10 mg DAILY [facility] Administration Nitroglycerin 0.4 mg 12/27/17 06:18 Nitrostat SL ASDIRECTED PRN Chest Pain Patients Own( 1,000 mg 12/27/17 08:00 12/28/17 07:44 Lysine Hcl [L-Lysine PO 1,000 mg ] 1,000 Mg) DAILY [facility] Administration Patients Own ( 60 mg 12/27/17 08:00 12/28/17 13:05 Pyridostigmine 60 Mg PO 60 mg ) TID [facility] Administration Patients Own( 100 mg 12/27/17 08:00 12/28/17 07:45 Ubidecarenone [Coq- PO 100 mg 10] 100 Mg) DAILY [facility] Administration Ondansetron HCl 4 mg 12/27/17 05:59 Zofran IV Q6H PRN Nausea/Vomiting Oxymetazoline HCl 0 ml 12/27/17 08:00 12/28/17 07:39 Afrin Original 0.05% Nasal [place] NASBOTH 1 puff DAILY [facility] Administration Pantoprazole Sodium 40 mg 12/27/17 19:45 Protonix PO DAILY PRN HEARTBURN Simvastatin 10 mg 12/27/17 20:00 12/27/17 19:26 Zocor PO 10 mg BEDTIME [facility] Administration Warfarin Sodium 2.5 mg 12/27/17 12:00 12/28/17 12:06 Coumadin PO 2.5 mg DAILY@1200 [facility] Administration Warfarin Sodium 2 mg 12/27/17 12:00 12/28/17 12:07 Coumadin PO 2 mg DAILY@1200 [facility] Administration Discontinued Medications Generic Name Dose Route Start Last Admin Trade Name Freq PRN Reason Stop Dose Admin Acetaminophen 1,000 mg 12/27/17 04:46 12/27/17 05:17 Tylenol Extra Strength PO 12/27/17 04:47 1,000 mg ONETIME ONE Administration Albuterol 0 gm 12/27/17 06:18 Ventolin Hfa INH QID PRN Shortness of Breath Albuterol gm 12/27/17 06:18 Ventolin Hfa INH QID PRN Shortness of Breath Albuterol/Ipratropium 3 ml 12/27/17 04:49 12/27/17 05:17 Duoneb 3.0-0.5 Mg/3 Ml NEB 12/27/17 04:50 3 ml ONETIME ONE Administration Ceftriaxone Sodium 1 gm 12/27/17 06:00 12/27/17 06:50 Rocephin IVPUSH 1 gm Q24H [facility] Administration Azithromycin 500 mg/ Sodium 250 mls @ 250 mls/hr 12/27/17 06:00 12/27/17 06: 49 Chloride IV 250 mls/hr Q24H [facility] Administration Sodium Chloride 1,000 mls @ 75 mls/hr 12/27/17 05:59 12/27/17 21:39 Normal Saline IV 12/28/17 06:00 75 mls/hr ASDIRECTED IRVIN Administration Iopamidol 100 ml 12/27/17 11:09 12/27/17 12:05 Isovue-300 (61%) IVPUSH 12/27/17 11:10 100 ml ONETIME ONE Administration Non-Formulary Medication 2 puff 12/27/17 08:00 12/27/17 19:27 Budesonide/Formoterol INH 2 puff BID [facility] Administration Non-Formulary Medication 5,000 unit 12/27/17 08:00 12/27/17 08:05 Cholecalciferol (Vitamin D3) PO 5,000 unit DAILY [facility] Administration Non-Formulary Medication 20 mg 12/27/17 06:18 Omeprazole [Omeprazole] PO DAILY PRN Heartburn Non-Formulary Medication 6 mg 12/27/17 06:30 Warfarin [Coumadin] PO ASDIRECTED IRVIN Warfarin Sodium 4.5 mg 12/27/17 06:30 Coumadin PO ASDIRECTED IRVIN - Radiology Interpretation Free Text/Narrative:: CXR: Compared with previous from 12/25/17. Possible new RML, RLL infiltrate? BLL scarring. Aorta tortus. No pumonary edema. Will review results of read CXR by radiologist when comes available. Departure - Departure Time of Disposition: 06:50 Disposition: Admitted As Inpatient 66 Condition: Poor Clinical Impression: Pneumonia - Discharge Information *PRESCRIPTION DRUG MONITORING PROGRAM REVIEWED*: No *COPY OF PRESCRIPTION DRUG MONITORING REPORT IN PATIENT MEG: No - Assessment/Plan Plan: PLEASE SEE RN NOTE FOR PFSH. PLEASE USE ER H&P ADMIT H&P.
[2017-12-27] MEDS ORDERED: Ondansetron 4 MG/2 ML SDV IV PRN (05:59)
[2017-12-27] MEDS ORDERED: Docusate Sodium 100 MG Cap PO PRN (05:59)
[2017-12-27] MEDS ORDERED: Albuterol/Ipratropium 3.0-0.5 MG/3 ML Neb Soln NEB PRN (05:59)
[2017-12-27] MEDS ORDERED: Azithromycin 500 MG in Sodium Chloride 0.9% 250 ML IV SCH (06:00)
[2017-12-27] MEDS ORDERED: cefTRIAXone 1 GM Vial IVPUSH SCH (06:00)
[2017-12-27] MEDS ORDERED: Non-Formulary Medication 1 Each (Omeprazole [Omeprazole] 20 MG) PO PRN (06:18)
[2017-12-27] MEDS ORDERED: Nitroglycerin 0.4 MG Tab.SL SL PRN (06:18)
[2017-12-27] MEDS ORDERED: Albuterol 8 GM Inhaler INH PRN ×3 (06:18→06:34)
[2017-12-27] MEDS ORDERED: Non-Formulary Medication 1 Each (Warfarin [Coumadin] 6 MG) PO SCH (06:30)
[2017-12-27] MEDS ORDERED: Warfarin 2.5 MG Tab PO SCH (06:30)
[2017-12-27] MEDS: Sodium Chloride 0.9% 1,000 ML IV SCH ×2 (06:50→21:39)
[2017-12-27] MEDS: Oxymetazoline 0.05% Nasal Spray 15 ML Bottle NASBOTH SCH (07:55)
[2017-12-27] MEDS: Albuterol/Ipratropium 3.0-0.5 MG/3 ML Neb Soln NEB SCH ×4 (07:57→19:26)
[2017-12-27] MEDS: UBIDECARENONE 100 MG PO SCH (08:04)
[2017-12-27] MEDS: LYSINE HCL 1000 MG PO SCH (08:04)
[2017-12-27] MEDS: Montelukast 10 MG Tab PO SCH (08:04)
[2017-12-27] MEDS: Aspirin 81 MG Tab.EC PO SCH (08:08)
[2017-12-27] MEDS: Non-Formulary Medication 1 Each (Budesonide/Formoterol 2 PUFF) INH SCH ×2 (08:13→19:27)
[2017-12-27] MEDS: Ibuprofen 200 MG Tab PO PRN (08:15)
[2017-12-27] MEDS: Furosemide 40 MG Tab PO SCH (09:03)
[2017-12-27] MEDS: Metoprolol Succinate 25 MG Tab.ER PO SCH (09:03)
[2017-12-27] MEDS: PYRIDOSTIGMINE 60 MG PO SCH ×3 (09:03→19:27)
[2017-12-27] MEDS ORDERED: Iopamidol 612 MG/ML 100 ML Bottle IVPUSH ONE (11:09)
[2017-12-27] MEDS: Warfarin 2.5 MG Tab PO SCH (12:13)
[2017-12-27] MEDS: Warfarin 2 MG Tab PO SCH (12:13)
[2017-12-27] MEDS ORDERED: Codeine/guaiFENesin 100-10 MG/5 ML Syrup 5 ML Cup PO PRN (18:14)
[2017-12-27] MEDS: Simvastatin 10 MG Tab PO SCH (19:26)
[2017-12-27] MEDS ORDERED: Pantoprazole 40 MG Tab.CR PO PRN (19:45)
[2017-12-27] MEDS: Formoterol/Mometasone 200-5 MCG 8.8 GM Inhaler IH SCH (20:10)
[2017-12-28] MEDS: cefTRIAXone 1 GM Vial IVPUSH SCH (07:36)
[2017-12-28] MEDS: Oxymetazoline 0.05% Nasal Spray 15 ML Bottle NASBOTH SCH (07:39)
[2017-12-28] MEDS: Azithromycin 500 MG in Sodium Chloride 0.9% 250 ML IV SCH (07:40)
[2017-12-28] MEDS: Furosemide 40 MG Tab PO SCH (07:43)
[2017-12-28] MEDS: Aspirin 81 MG Tab.EC PO SCH (07:43)
[2017-12-28] MEDS: LYSINE HCL 1000 MG PO SCH (07:44)
[2017-12-28] MEDS: PYRIDOSTIGMINE 60 MG PO SCH ×3 (07:44→19:49)
[2017-12-28] MEDS: Cholecalciferol (Vitamin D3) 1,000 Unit Tab PO SCH (07:45)
[2017-12-28] MEDS: UBIDECARENONE 100 MG PO SCH (07:45)
[2017-12-28] MEDS: Montelukast 10 MG Tab PO SCH (07:45)
[2017-12-28] MEDS: Formoterol/Mometasone 200-5 MCG 8.8 GM Inhaler IH SCH ×2 (07:47→19:49)
[2017-12-28] MEDS: Albuterol/Ipratropium 3.0-0.5 MG/3 ML Neb Soln NEB SCH ×4 (07:47→19:49)
[2017-12-28 08:15] LABS: CHLORIDE,CL 108 mEq/L (98-106); SODIUM,NA 143 mEq/L (136-145)
[2017-12-28] MEDS: Metoprolol Succinate 25 MG Tab.ER PO SCH (09:54)
[2017-12-28] MEDS: Warfarin 2.5 MG Tab PO SCH (12:06)
[2017-12-28] MEDS: Warfarin 2 MG Tab PO SCH (12:07)
--- NOTE | 2017-12-28 12:42 | PCM.PN ---
- General Info Date of Service: 12/28/17 Functional Status: Reports: Pain Controlled, Tolerating Diet, Ambulating - Review of Systems General: Reports: Weakness (generalized), Malaise (but improving.). Denies: Fever (afebrile this morning) HEENT: Reports: No Symptoms Pulmonary: Reports: Shortness of Breath (improved from yesterday), Pleuritic Chest Pain, Cough, Sputum Cardiovascular: Reports: No Symptoms Gastrointestinal: Reports: No Symptoms Genitourinary: Reports: No Symptoms Musculoskeletal: Reports: No Symptoms Skin: Reports: No Symptoms Neurological: Reports: No Symptoms Psychiatric: Reports: No Symptoms - Patient Data Vitals - Most Recent: Last Vital Signs Temp 97.7 F 12/28/17 08:00 Pulse 91 12/28/17 09:54 Resp 20 12/28/17 08:00 BP 112/55 L 12/28/17 09:54 Pulse Ox 97 12/28/17 08:00 Weight - Most Recent: 179 lb 1.6 oz I&O - Last 24 Hours: Intake & Output 12/27/17 12/28/17 12/28/17 22:59 06:59 14:59 Intake Total 1000 Balance 1000 Lab Results Last 24 Hours: Laboratory Results - last 24 hr 12/28/17 12/28/17 Range/Units 07:44 07:44 WBC 12.6 H (5.0-10.0) 10^3/uL RBC 3.93 L (4.50-6.00) 10^6/uL Hgb 13.2 L (14.0-18.0) g/dL Hct 39.5 L (40.0-54.0) % MCV 100.5 H (82.0-94.0) fL MCH 33.6 H (27.0-32.0) pg MCHC 33.4 (33.0-38.0) g/dL RDW Coeff of Vladislav 13.2 (11.0-15.0) % Plt Count 176 (150-400) 10^3/uL Neut % (Auto) 84.9 (35-85) % Lymph % (Auto) 8.4 L (10-55) % [place] % (Auto) 4.1 (0-16) % Eos % (Auto) 2.5 (0-5) % Baso % (Auto) 0.1 (0-3) % Neut # (Auto) 10.70 H (1.80-7.00) 10^3/uL Lymph # (Auto) 1.06 (1.00-4.80) 10^3/uL [place] # (Auto) 0.51 (0.00-0.80) 10^3/uL Eos # (Auto) 0.31 (0.00-0.45) 10^3/uL Baso # (Auto) 0.01 10^3/uL Sodium 143 (136-145) mEq/L Potassium 4.2 (3.5-5.0) mEq/L Chloride 108 H (98-106) mEq/L Carbon Dioxide 30 (21-32) mmol/L BUN 20 H (7-18) mg/dL Creatinine 1.1 (0.7-1.3) mg/dL Est Cr Clr Drug Dosing 41.92 mL/min Estimated GFR (MDRD) > 60 (>=60) mL/min Glucose 98 (75-99) mg/dL Calcium 7.9 L (8.4-10.1) mg/dL C-Reactive Protein 20.1 H (0.2-0.8) mg/dL Padilla Results Last 24 Hours: Microbiology 12/27/17 05:10 Aerobic Blood Culture - Preliminary Blood - Venous - Lab Draw NO GROWTH AFTER 1 DAY Anaerobic Blood Culture - Preliminary NO GROWTH AFTER 1 DAY 12/27/17 05:10 Aerobic Blood Culture - Preliminary Blood - Venous NO GROWTH AFTER 1 DAY Anaerobic Blood Culture - Preliminary NO GROWTH AFTER 1 DAY 12/27/17 08:00 Influenza Type A Antigen Screen - Final Nasal, Unspecified NEGATIVE INFLUENZA A VIRUS AG Influenza Type B Antigen Screen - Final NEGATIVE INFLUENZA B VIRUS AG Med Orders - Current: Current Medications Acetaminophen (Tylenol) 650 mg PO Q4H PRN PRN Reason: Pain (Mild 1-3)/fever Albuterol (Ventolin Hfa) 1 - 2 gm INH QID PRN PRN Reason: Shortness of Breath Albuterol/Ipratropium (Duoneb 3.0-0.5 Mg/3 Ml) 3 ml NEB Q4H PRN PRN Reason: Shortness Of Breath/wheezing Albuterol/Ipratropium (Duoneb 3.0-0.5 Mg/3 Ml) 3 ml NEB QID [facility] Last Admin: 12/28/17 12:07 Dose: 3 ml Aspirin (Halfprin) 81 mg PO DAILY [facility] Last Admin: 12/28/17 07:43 Dose: 81 mg Ceftriaxone Sodium (Rocephin) 1 gm IVPUSH DAILY [facility] Last Admin: 12/28/17 07:36 Dose: 1 gm Cholecalciferol (Vitamin D3) 5,000 units PO DAILY [facility] Last Admin: 12/28/17 07:45 Dose: 5,000 units Docusate Sodium (Colace) 100 mg PO BID PRN PRN Reason: Constipation Furosemide (Lasix) 40 mg PO DAILY [facility] Last Admin: 12/28/17 07:43 Dose: 40 mg Guaifenesin/Codeine Phosphate (Robitussin Ac) 5 ml PO Q6H PRN PRN Reason: Cough Azithromycin 500 mg/ Sodium (Chloride) 250 mls @ 250 mls/hr IV DAILY [facility] Last Admin: 12/28/17 07:40 Dose: 250 mls/hr Ibuprofen (Motrin) 600 mg PO Q6H PRN PRN Reason: Pain (mild 1-3) Last Admin: 12/27/17 08:15 Dose: 600 mg Metoprolol Succinate (Toprol Xl) 25 mg PO DAILY [facility] Last Admin: 12/28/17 09:54 Dose: 25 mg Mometasone Furoate/Formoterol Fumar (Dulera 200-5 Mcg) 2 puff IH BIDRT [facility] Last Admin: 12/28/17 07:47 Dose: 2 puff Montelukast Sodium (Singulair) 10 mg PO DAILY [facility] Last Admin: 12/28/17 07:45 Dose: 10 mg Nitroglycerin (Nitrostat) 0.4 mg SL ASDIRECTED PRN PRN Reason: Chest Pain Patients Own( Lysine Hcl [L-Lysine ] 1,000 Mg) 1,000 mg PO DAILY [facility] Last Admin: 12/28/17 07:44 Dose: 1,000 mg Patients Own ( Pyridostigmine 60 Mg ) 60 mg PO TID [facility] Last Admin: 12/28/17 07:44 Dose: 60 mg Patients Own( Ubidecarenone [Coq- 10] 100 Mg) 100 mg PO DAILY [facility] Last Admin: 12/28/17 07:45 Dose: 100 mg Ondansetron HCl (Zofran) 4 mg IV Q6H PRN PRN Reason: Nausea/Vomiting Oxymetazoline HCl (Afrin Original 0.05% Nasal [place]) 0 ml NASBOTH DAILY [facility] Last Admin: 12/28/17 07:39 Dose: 1 puff Pantoprazole Sodium (Protonix) 40 mg PO DAILY PRN PRN Reason: HEARTBURN Simvastatin (Zocor) 10 mg PO BEDTIME [facility] Last Admin: 12/27/17 19:26 Dose: 10 mg Warfarin Sodium (Coumadin) 2.5 mg PO DAILY@1200 [facility] Last Admin: 12/28/17 12:06 Dose: 2.5 mg Warfarin Sodium (Coumadin) 2 mg PO DAILY@1200 [facility] Last Admin: 12/28/17 12:07 Dose: 2 mg Discontinued Medications Acetaminophen (Tylenol Extra Strength) 1,000 mg PO ONETIME ONE Stop: 12/27/17 04:47 Last Admin: 12/27/17 05:17 Dose: 1,000 mg Albuterol (Ventolin Hfa) 0 gm INH QID PRN PRN Reason: Shortness of Breath Albuterol (Ventolin Hfa) gm INH QID PRN PRN Reason: Shortness of Breath Albuterol/Ipratropium (Duoneb 3.0-0.5 Mg/3 Ml) 3 ml NEB ONETIME ONE Stop: 12/27/17 04:50 Last Admin: 12/27/17 05:17 Dose: 3 ml Ceftriaxone Sodium (Rocephin) 1 gm IVPUSH Q24H [facility] Last Admin: 12/27/17 06:50 Dose: 1 gm Azithromycin 500 mg/ Sodium (Chloride) 250 mls @ 250 mls/hr IV Q24H [facility] Last Admin: 12/27/17 06:49 Dose: 250 mls/hr Sodium Chloride (Normal Saline) 1,000 mls @ 75 mls/hr IV ASDIRECTED [facility] Stop: 12/28/17 06:00 Last Admin: 12/27/17 21:39 Dose: 75 mls/hr Iopamidol (Isovue-300 (61%)) 100 ml IVPUSH ONETIME ONE Stop: 12/27/17 11:10 Last Admin: 12/27/17 12:05 Dose: 100 ml Non-Formulary Medication (Budesonide/Formoterol) 2 puff INH BID [facility] Last Admin: 12/27/17 19:27 Dose: 2 puff Non-Formulary Medication (Cholecalciferol (Vitamin D3)) 5,000 unit PO DAILY [facility] Last Admin: 12/27/17 08:05 Dose: 5,000 unit Non-Formulary Medication (Omeprazole [Omeprazole]) 20 mg PO DAILY PRN PRN Reason: Heartburn Non-Formulary Medication (Warfarin [Coumadin]) 6 mg PO ASDIRECTED [facility] Warfarin Sodium (Coumadin) 4.5 mg PO ASDIRECTED [facility] - Exam Quality Assessment: Supplemental Oxygen (2L NC, 96%) General: Alert, Oriented, Cooperative, No Acute Distress HEENT: Pupils Equal, Mucous Membr. Moist/[place] Neck: Supple, Trachea Midline, No JVD Lungs: Crackles (Right lower/middle lobe. CARMINA.), Wheezing (moderate throughout) Cardiovascular: Regular Rate, Regular Rhythm GI/Abdominal Exam: Normal Bowel Sounds, Soft, Non-Tender, No Organomegaly, No Distention, No Abnormal Bruit, No Mass, Pelvis Stable Back Exam: Normal Inspection, Full Range of Motion Extremities: Normal Inspection, Normal Range of Motion, Non-Tender, No Pedal Edema, Normal Capillary Refill Peripheral Pulses: 2+: Radial (L), Radial (R), Posterior Tibial (L), Posterior Tibial (R), Dorsalis Pedis (L), Dorsalis Pedis (R) Skin: Warm, Dry, Intact Neurological: No New Focal Deficit Psy/Mental Status: Alert, Normal Affect, Normal Mood - Problem List Review Problem List Initiated/Reviewed/Updated: Yes - My Orders Last 24 Hours: My Active Orders 12/27/17 12:00 Warfarin [Coumadin] 2 mg PO DAILY@1200 Warfarin [Coumadin] 2.5 mg PO DAILY@1200 12/27/17 18:14 Codeine/guaiFENesin [Robitussin AC] 5 ml PO Q6H PRN 12/27/17 19:45 Pantoprazole [ProTONIX] 40 mg PO DAILY PRN 12/27/17 20:00 Mometasone/Formoterol [Dulera 200-5 MCG] 2 puff IH BIDRT Simvastatin [Zocor] 10 mg PO BEDTIME 12/28/17 08:00 Azithromycin [Zithromax] 500 mg Sodium Chloride 0.9% [Normal Saline] 250 ml IV DAILY Cholecalciferol (Vitamin D3) [Vitamin D3] 5,000 units PO DAILY cefTRIAXone [Rocephin] 1 gm IVPUSH DAILY 12/29/17 05:00 BASIC METABOLIC PANEL,BMP [CHEM] DAILY C-REACTIVE PROTEIN [CHEM] DAILY CBC WITH AUTO DIFF [HEME] DAILY INR,PT,PROTHROMBIN TIME [COAG] Routine 12/30/17 05:00 BASIC METABOLIC PANEL,BMP [CHEM] DAILY C-REACTIVE PROTEIN [CHEM] DAILY CBC WITH AUTO DIFF [HEME] DAILY - Plan Plan:: This patient is an 87 year male that presented to the ER with shortness of breath and fever. The patient was diagnosed with pneumonia via chest xray. Rdiologist read CXR as clear lungs. CT was ordered and shows Bilateral lung pneumonia. The patient today reportshe is feleing better. He reports he is moving better air. Patient fever has been under control today. THe patient is sitting up in the bed conversing in full and complete sentences without difficulty. He continues with productive cough. He reports he is having some pain in his chest and lungs with coughing only. The patient is alert and oriented. The patient wbc has decreased some and the CRP has increased today. We will continue abx and breathing treatments and steroids. Patient will be seen by his PCP tomorrow. THe patient oxygen saturation is 96% on 2 L NC, and has improved as well.
[2017-12-28] MEDS: Ibuprofen 200 MG Tab PO PRN (12:51)
[2017-12-28] MEDS: methylPREDNISolone Sodium Succinate 125 MG/2 ML SDV IVPUSH SCH (17:24)
[2017-12-28] MEDS: Simvastatin 10 MG Tab PO SCH (19:50)
[2017-12-29] MEDS: methylPREDNISolone Sodium Succinate 125 MG/2 ML SDV IVPUSH SCH ×2 (05:58→18:04)
[2017-12-29] MEDS: cefTRIAXone 1 GM Vial IVPUSH SCH (07:25)
[2017-12-29] MEDS: Azithromycin 500 MG in Sodium Chloride 0.9% 250 ML IV SCH (07:29)
[2017-12-29] MEDS: Oxymetazoline 0.05% Nasal Spray 15 ML Bottle NASBOTH SCH (07:34)
[2017-12-29] MEDS: Albuterol/Ipratropium 3.0-0.5 MG/3 ML Neb Soln NEB SCH ×4 (07:34→20:41)
[2017-12-29] MEDS: Formoterol/Mometasone 200-5 MCG 8.8 GM Inhaler IH SCH ×2 (07:34→20:52)
[2017-12-29] MEDS: PYRIDOSTIGMINE 60 MG PO SCH ×3 (07:35→20:39)
[2017-12-29] MEDS: Furosemide 40 MG Tab PO SCH (07:35)
[2017-12-29] MEDS: Aspirin 81 MG Tab.EC PO SCH (07:35)
[2017-12-29] MEDS: LYSINE HCL 1000 MG PO SCH (07:35)
[2017-12-29] MEDS: UBIDECARENONE 100 MG PO SCH (07:36)
[2017-12-29] MEDS: Montelukast 10 MG Tab PO SCH (07:36)
[2017-12-29] MEDS: Metoprolol Succinate 25 MG Tab.ER PO SCH (07:36)
[2017-12-29] MEDS: Cholecalciferol (Vitamin D3) 1,000 Unit Tab PO SCH (07:36)
[2017-12-29 07:51] LABS: CHLORIDE,CL 107 mEq/L (98-106); SODIUM,NA 141 mEq/L (136-145)
[2017-12-29] MEDS: Warfarin 2 MG Tab PO SCH (11:41)
[2017-12-29] MEDS: Warfarin 2.5 MG Tab PO SCH (11:41)
--- NOTE | 2017-12-29 11:43 | PCM.PN ---
- General Info Date of Service: 12/29/17 Admission Dx/Problem (Free Text): Bilateral Pneumonia Functional Status: Reports: Pain Controlled, Tolerating Diet. Denies: Ambulating - Review of Systems General: Reports: Weakness, Fatigue. Denies: Fever HEENT: Denies: Ear Pain, Sore Throat, Rhinitis Pulmonary: Reports: Shortness of Breath, Cough, Wheezing Cardiovascular: Denies: Chest Pain, Edema, Lightheadedness Gastrointestinal: Denies: Abdominal Pain, Nausea, Vomiting Genitourinary: Reports: No Symptoms Musculoskeletal: Reports: No Symptoms Skin: Reports: No Symptoms Neurological: Reports: Confusion (unable to recall meds, how long symptoms have persisted. 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) - Patient Data Vitals - Most Recent: Last Vital Signs Temp 97.6 F 12/29/17 08:00 Pulse 73 12/29/17 08:00 Resp 22 H 12/29/17 08:00 BP 107/67 12/29/17 08:00 Pulse Ox 96 12/29/17 08:00 Weight - Most Recent: 183 lb 9.6 oz Lab Results Last 24 Hours: Laboratory Results - last 24 hr 12/29/17 12/29/17 12/29/17 Range/Units 07:06 07:06 07:06 WBC 10.6 H (5.0-10.0) 10^3/uL RBC 4.15 L (4.50-6.00) 10^6/uL Hgb 13.6 L (14.0-18.0) g/dL Hct 41.8 (40.0-54.0) % MCV 100.7 H (82.0-94.0) fL MCH 32.8 H (27.0-32.0) pg MCHC 32.5 L (33.0-38.0) g/dL RDW Coeff of Vladislav 13.0 (11.0-15.0) % Plt Count 195 (150-400) 10^3/uL Add Manual Diff Yes Neutrophils % (Manual) 93 H (35-85) % Lymphocytes % (Manual) 3 L (21-55) % Monocytes % (Manual) 4 (2-12) % Absolute Neutrophils 9.86 H (1.80-7.00) 10^3/uL Lymphocytes # (Manual) 0.32 L (1.00-4.80) 10^3/uL Monocytes # (Manual) 0.42 (0.00-0.80) 10^3/uL PT 23.3 H (9.7-12.3) SEC INR 2.39 H (0.92-1.18) Sodium 141 (136-145) mEq/L Potassium 4.6 (3.5-5.0) mEq/L Chloride 107 H (98-106) mEq/L Carbon Dioxide 25 (21-32) mmol/L BUN 21 H (7-18) mg/dL Creatinine 1.0 (0.7-1.3) mg/dL Est Cr Clr Drug Dosing 46.12 mL/min Estimated GFR (MDRD) > 60 (>=60) mL/min Glucose 140 H D (75-99) mg/dL Calcium 8.7 (8.4-10.1) mg/dL C-Reactive Protein 16.6 H (0.2-0.8) mg/dL [place] Results Last 24 Hours: Microbiology 12/27/17 05:10 Aerobic Blood Culture - Preliminary Blood - Venous - Lab Draw NO GROWTH AFTER 2 DAYS Anaerobic Blood Culture - Preliminary NO GROWTH AFTER 2 DAYS 12/27/17 05:10 Aerobic Blood Culture - Preliminary Blood - Venous NO GROWTH AFTER 2 DAYS Anaerobic Blood Culture - Preliminary NO GROWTH AFTER 2 DAYS Med Orders - Current: Current Medications Acetaminophen (Tylenol) 650 mg PO Q4H PRN PRN Reason: Pain (Mild 1-3)/fever Albuterol (Ventolin Hfa) 1 - 2 gm INH QID PRN PRN Reason: Shortness of Breath Albuterol/Ipratropium (Duoneb 3.0-0.5 Mg/3 Ml) 3 ml NEB Q4H PRN PRN Reason: Shortness Of Breath/wheezing Albuterol/Ipratropium (Duoneb 3.0-0.5 Mg/3 Ml) 3 ml NEB QID [facility] Last Admin: 12/29/17 07:34 Dose: 3 ml Aspirin (Halfprin) 81 mg PO DAILY [facility] Last Admin: 12/29/17 07:35 Dose: 81 mg Ceftriaxone Sodium (Rocephin) 1 gm IVPUSH DAILY [facility] Last Admin: 12/29/17 07:25 Dose: 1 gm Cholecalciferol (Vitamin D3) 5,000 units PO DAILY [facility] Last Admin: 12/29/17 07:36 Dose: 5,000 units Docusate Sodium (Colace) 100 mg PO BID PRN PRN Reason: Constipation Furosemide (Lasix) 40 mg PO DAILY [facility] Last Admin: 12/29/17 07:35 Dose: 40 mg Guaifenesin/Codeine Phosphate (Robitussin Ac) 5 ml PO Q6H PRN PRN Reason: Cough Last Admin: 12/29/17 05:58 Dose: 5 ml Azithromycin 500 mg/ Sodium (Chloride) 250 mls @ 250 mls/hr IV DAILY [facility] Last Admin: 12/29/17 07:29 Dose: 250 mls/hr Ibuprofen (Motrin) 600 mg PO Q6H PRN PRN Reason: Pain (mild 1-3) Last Admin: 12/28/17 12:51 Dose: 600 mg Methylprednisolone Sodium Succinate (Solu-Medrol) 62.5 mg IVPUSH Q12H [facility] Last Admin: 12/29/17 05:58 Dose: 62.5 mg Metoprolol Succinate (Toprol Xl) 25 mg PO DAILY [facility] Last Admin: 12/29/17 07:36 Dose: 25 mg Mometasone Furoate/Formoterol Fumar (Dulera 200-5 Mcg) 2 puff IH BIDRT [facility] Last Admin: 12/29/17 07:34 Dose: 2 puff Montelukast Sodium (Singulair) 10 mg PO DAILY [facility] Last Admin: 12/29/17 07:36 Dose: 10 mg Nitroglycerin (Nitrostat) 0.4 mg SL ASDIRECTED PRN PRN Reason: Chest Pain Patients Own( Lysine Hcl [L-Lysine ] 1,000 Mg) 1,000 mg PO DAILY [facility] Last Admin: 12/29/17 07:35 Dose: 1,000 mg Patients Own ( Pyridostigmine 60 Mg ) 60 mg PO TID [facility] Last Admin: 12/29/17 07:35 Dose: 60 mg Patients Own( Ubidecarenone [Coq- 10] 100 Mg) 100 mg PO DAILY [facility] Last Admin: 12/29/17 07:36 Dose: 100 mg Ondansetron HCl (Zofran) 4 mg IV Q6H PRN PRN Reason: Nausea/Vomiting Oxymetazoline HCl (Afrin Original 0.05% Nasal [place]) 0 ml NASBOTH DAILY [facility] Last Admin: 12/29/17 07:34 Dose: 1 puff Pantoprazole Sodium (Protonix) 40 mg PO DAILY PRN PRN Reason: HEARTBURN Simvastatin (Zocor) 10 mg PO BEDTIME [facility] Last Admin: 12/28/17 19:50 Dose: 10 mg Warfarin Sodium (Coumadin) 2.5 mg PO DAILY@1200 [facility] Last Admin: 12/28/17 12:06 Dose: 2.5 mg Warfarin Sodium (Coumadin) 2 mg PO DAILY@1200 [facility] Last Admin: 12/28/17 12:07 Dose: 2 mg Discontinued Medications Acetaminophen (Tylenol Extra Strength) 1,000 mg PO ONETIME ONE Stop: 12/27/17 04:47 Last Admin: 12/27/17 05:17 Dose: 1,000 mg Albuterol (Ventolin Hfa) 0 gm INH QID PRN PRN Reason: Shortness of Breath Albuterol (Ventolin Hfa) gm INH QID PRN PRN Reason: Shortness of Breath Albuterol/Ipratropium (Duoneb 3.0-0.5 Mg/3 Ml) 3 ml NEB ONETIME ONE Stop: 12/27/17 04:50 Last Admin: 12/27/17 05:17 Dose: 3 ml Ceftriaxone Sodium (Rocephin) 1 gm IVPUSH Q24H [facility] Last Admin: 12/27/17 06:50 Dose: 1 gm Azithromycin 500 mg/ Sodium (Chloride) 250 mls @ 250 mls/hr IV Q24H [facility] Last Admin: 12/27/17 06:49 Dose: 250 mls/hr Sodium Chloride (Normal Saline) 1,000 mls @ 75 mls/hr IV ASDIRECTED [facility] Stop: 12/28/17 06:00 Last Admin: 12/27/17 21:39 Dose: 75 mls/hr Iopamidol (Isovue-300 (61%)) 100 ml IVPUSH ONETIME ONE Stop: 12/27/17 11:10 Last Admin: 12/27/17 12:05 Dose: 100 ml Non-Formulary Medication (Budesonide/Formoterol) 2 puff INH BID [facility] Last Admin: 12/27/17 19:27 Dose: 2 puff Non-Formulary Medication (Cholecalciferol (Vitamin D3)) 5,000 unit PO DAILY [facility] Last Admin: 12/27/17 08:05 Dose: 5,000 unit Non-Formulary Medication (Omeprazole [Omeprazole]) 20 mg PO DAILY PRN PRN Reason: Heartburn Non-Formulary Medication (Warfarin [Coumadin]) 6 mg PO ASDIRECTED [facility] Warfarin Sodium (Coumadin) 4.5 mg PO ASDIRECTED [facility] - Exam Quality Assessment: Supplemental Oxygen General: Alert, Oriented HEENT: Mucous Membr. Moist/[place] Neck: Supple Lungs: Decreased Breath Sounds, Wheezing Cardiovascular: Regular Rate, Regular Rhythm GI/Abdominal Exam: Normal Bowel Sounds, Soft, Non-Tender Extremities: Normal Inspection, No Pedal Edema Skin: Warm, Dry Neurological: No New Focal Deficit Psy/Mental Status: Other (patient poor historian when asking about his symptoms and length of time he has been ill, medication use, etc. ) - Problem List & Annotations (1) Pneumonia SNOMED Code(s): 344931887 Code(s): J18.9 - PNEUMONIA, UNSPECIFIED ORGANISM Status: Acute Priority: High Current Visit: Yes - Problem List Review Problem List Initiated/Reviewed/Updated: Yes - My Orders Last 24 Hours: My Active Orders 12/29/17 09:03 Consult to Physical Therapy [PT Evaluation and Treatment] [CONS] Routine - Assessment Assessment:: Bilateral Pneumonia - Plan Plan:: This patient is an 87 year male that presented to the ER with shortness of breath and fever. The patient was diagnosed with pneumonia via chest xray. Rdiologist read CXR as clear lungs. CT was ordered and shows Bilateral lung pneumonia. The patient today reportshe is feleing better. He reports he is moving better air. Patient fever has been under control today. THe patient is sitting up in the bed conversing in full and complete sentences without difficulty. He continues with productive cough. He reports he is having some pain in his chest and lungs with coughing only. The patient is alert and oriented. The patient wbc has decreased some and the CRP has increased today. We will continue abx and breathing treatments and steroids. Patient will be seen by his PCP tomorrow. THe patient oxygen saturation is 96% on 2 L NC, and has improved as well. 12-29-2017 Patient states is feeling better, no direct answers when asked, just says "you know, my normal". Does have dyspnea with exertion, ie. toileting. Still on 2 liters of oxygen but sats at 96%. WBC stable today at 10.6, CRP improving at 16.6. Has been afebrile now. Appetite is good. Lung sounds diminished with fine expiratory wheezing. Wean off oxygen as able. Physical therapy for ambulation/strengthening. Continue Zithromax and Rocephin IV. Nebs. Solu Medrol. Repeat labs in am.
[2017-12-29] MEDS: Simvastatin 10 MG Tab PO SCH (20:39)
[2017-12-29] MEDS: Acetaminophen 325 MG Tab PO PRN (20:39)
[2017-12-30] MEDS: methylPREDNISolone Sodium Succinate 125 MG/2 ML SDV IVPUSH SCH ×2 (06:36→18:12)
[2017-12-30] MEDS: Montelukast 10 MG Tab PO SCH (07:45)
[2017-12-30] MEDS: Aspirin 81 MG Tab.EC PO SCH (07:45)
[2017-12-30] MEDS: cefTRIAXone 1 GM Vial IVPUSH SCH (07:45)
[2017-12-30] MEDS: Metoprolol Succinate 25 MG Tab.ER PO SCH (07:45)
[2017-12-30] MEDS: Albuterol/Ipratropium 3.0-0.5 MG/3 ML Neb Soln NEB SCH ×4 (07:45→19:47)
[2017-12-30] MEDS: Cholecalciferol (Vitamin D3) 1,000 Unit Tab PO SCH (07:46)
[2017-12-30] MEDS: Furosemide 40 MG Tab PO SCH (07:46)
[2017-12-30] MEDS: Formoterol/Mometasone 200-5 MCG 8.8 GM Inhaler IH SCH ×2 (07:46→19:46)
[2017-12-30] MEDS: Oxymetazoline 0.05% Nasal Spray 15 ML Bottle NASBOTH SCH (07:47)
[2017-12-30] MEDS: Azithromycin 500 MG in Sodium Chloride 0.9% 250 ML IV SCH (07:47)
[2017-12-30] MEDS: PYRIDOSTIGMINE 60 MG PO SCH ×3 (07:48→19:47)
[2017-12-30] MEDS: LYSINE HCL 1000 MG PO SCH (07:48)
[2017-12-30] MEDS: UBIDECARENONE 100 MG PO SCH (07:49)
[2017-12-30] MEDS: Warfarin 2.5 MG Tab PO SCH (12:37)
[2017-12-30] MEDS: Warfarin 2 MG Tab PO SCH (12:37)
[2017-12-30] MEDS: Acetaminophen 325 MG Tab PO PRN (14:36)
[2017-12-30] MEDS: Simvastatin 10 MG Tab PO SCH (19:47)
--- NOTE | 2017-12-30 20:09 | PCM.PN ---
- General Info Date of Service: 12/30/17 Admission Dx/Problem (Free Text): Bilateral Pneumonia Functional Status: Reports: Pain Controlled, Tolerating Diet, Ambulating - Review of Systems General: Reports: Weakness, Fatigue. Denies: Fever HEENT: Reports: No Symptoms Pulmonary: Reports: Shortness of Breath, Cough, Sputum, Wheezing Cardiovascular: Reports: Edema. Denies: Chest Pain, Lightheadedness Gastrointestinal: Denies: Abdominal Pain, Nausea, Vomiting Genitourinary: Reports: No Symptoms Musculoskeletal: Reports: No Symptoms Skin: Reports: No Symptoms Neurological: Reports: No Symptoms - Patient Data Vitals - Most Recent: Last Vital Signs Temp 98.0 F 12/30/17 19:49 Pulse 81 12/30/17 19:49 Resp 20 12/30/17 19:49 BP 113/70 12/30/17 19:49 Pulse Ox 95 12/30/17 19:49 Weight - Most Recent: 183 lb 4.8 oz Lab Results Last 24 Hours: Laboratory Results - last 24 hr 12/30/17 12/30/17 Range/Units 07:00 07:00 WBC 15.1 H (5.0-10.0) 10^3/uL RBC 4.27 L (4.50-6.00) 10^6/uL Hgb 14.2 (14.0-18.0) g/dL Hct 42.8 (40.0-54.0) % MCV 100.2 H (82.0-94.0) fL MCH 33.3 H (27.0-32.0) pg MCHC 33.2 (33.0-38.0) g/dL RDW Coeff of Vladislav 13.1 (11.0-15.0) % Plt Count 251 (150-400) 10^3/uL Add Manual Diff Yes Neutrophils % (Manual) 89 H (35-85) % Band Neutrophils % 4 (0-5) % Lymphocytes % (Manual) 4 L (21-55) % Monocytes % (Manual) 3 (2-12) % Sodium 140 (136-145) mEq/L Potassium 4.7 (3.5-5.0) mEq/L Chloride 106 (98-106) mEq/L Carbon Dioxide 28 (21-32) mmol/L BUN 30 H (7-18) mg/dL Creatinine 1.2 (0.7-1.3) mg/dL Est Cr Clr Drug Dosing 38.43 mL/min Estimated GFR (MDRD) 57 L (>=60) mL/min Glucose 128 H (75-99) mg/dL Calcium 9.0 (8.4-10.1) mg/dL C-Reactive Protein 7.8 H (0.2-0.8) mg/dL Padilla Results Last 24 Hours: Microbiology 12/29/17 17:30 Gram Stain - Final Sputum - Expectorated Sputum Culture - Preliminary 12/27/17 05:10 Aerobic Blood Culture - Preliminary Blood - Venous - Lab Draw NO GROWTH AFTER 3 DAYS Anaerobic Blood Culture - Preliminary NO GROWTH AFTER 3 DAYS 12/27/17 05:10 Aerobic Blood Culture - Preliminary Blood - Venous NO GROWTH AFTER 3 DAYS Anaerobic Blood Culture - Preliminary NO GROWTH AFTER 3 DAYS Med Orders - Current: Current Medications Acetaminophen (Tylenol) 650 mg PO Q4H PRN PRN Reason: Pain (Mild 1-3)/fever Last Admin: 12/30/17 14:36 Dose: 650 mg Albuterol (Ventolin Hfa) 1 - 2 gm INH QID PRN PRN Reason: Shortness of Breath Albuterol/Ipratropium (Duoneb 3.0-0.5 Mg/3 Ml) 3 ml NEB Q4H PRN PRN Reason: Shortness Of Breath/wheezing Albuterol/Ipratropium (Duoneb 3.0-0.5 Mg/3 Ml) 3 ml NEB QID [facility] Last Admin: 12/30/17 19:47 Dose: 3 ml Aspirin (Halfprin) 81 mg PO DAILY [facility] Last Admin: 12/30/17 07:45 Dose: 81 mg Ceftriaxone Sodium (Rocephin) 1 gm IVPUSH DAILY [facility] Last Admin: 12/30/17 07:45 Dose: 1 gm Cholecalciferol (Vitamin D3) 5,000 units PO DAILY [facility] Last Admin: 12/30/17 07:46 Dose: 5,000 units Docusate Sodium (Colace) 100 mg PO BID PRN PRN Reason: Constipation Furosemide (Lasix) 40 mg PO DAILY [facility] Last Admin: 12/30/17 07:46 Dose: 40 mg Guaifenesin/Codeine Phosphate (Robitussin Ac) 5 ml PO Q6H PRN PRN Reason: Cough Last Admin: 12/29/17 05:58 Dose: 5 ml Azithromycin 500 mg/ Sodium (Chloride) 250 mls @ 250 mls/hr IV DAILY [facility] Last Admin: 12/30/17 07:47 Dose: 250 mls/hr Ibuprofen (Motrin) 600 mg PO Q6H PRN PRN Reason: Pain (mild 1-3) Last Admin: 12/28/17 12:51 Dose: 600 mg Methylprednisolone Sodium Succinate (Solu-Medrol) 62.5 mg IVPUSH Q12H [facility] Last Admin: 12/30/17 18:12 Dose: 62.5 mg Metoprolol Succinate (Toprol Xl) 25 mg PO DAILY [facility] Last Admin: 12/30/17 07:45 Dose: 25 mg Mometasone Furoate/Formoterol Fumar (Dulera 200-5 Mcg) 2 puff IH BIDRT [facility] Last Admin: 12/30/17 19:46 Dose: 2 puff Montelukast Sodium (Singulair) 10 mg PO DAILY [facility] Last Admin: 12/30/17 07:45 Dose: 10 mg Nitroglycerin (Nitrostat) 0.4 mg SL ASDIRECTED PRN PRN Reason: Chest Pain Patients Own( Lysine Hcl [L-Lysine ] 1,000 Mg) 1,000 mg PO DAILY [facility] Last Admin: 12/30/17 07:48 Dose: 1,000 mg Patients Own ( Pyridostigmine 60 Mg ) 60 mg PO TID [facility] Last Admin: 12/30/17 19:47 Dose: 60 mg Patients Own( Ubidecarenone [Coq- 10] 100 Mg) 100 mg PO DAILY [facility] Last Admin: 12/30/17 07:49 Dose: 100 mg Ondansetron HCl (Zofran) 4 mg IV Q6H PRN PRN Reason: Nausea/Vomiting Oxymetazoline HCl (Afrin Original 0.05% Nasal [place]) 0 ml NASBOTH DAILY [facility] Last Admin: 12/30/17 07:47 Dose: 1 inhalation Pantoprazole Sodium (Protonix) 40 mg PO DAILY PRN PRN Reason: HEARTBURN Simvastatin (Zocor) 10 mg PO BEDTIME [facility] Last Admin: 12/30/17 19:47 Dose: 10 mg Warfarin Sodium (Coumadin) 2.5 mg PO DAILY@1200 [facility] Last Admin: 12/30/17 12:37 Dose: 2.5 mg Warfarin Sodium (Coumadin) 2 mg PO DAILY@1200 [facility] Last Admin: 12/30/17 12:37 Dose: 2 mg Discontinued Medications Acetaminophen (Tylenol Extra Strength) 1,000 mg PO ONETIME ONE Stop: 12/27/17 04:47 Last Admin: 12/27/17 05:17 Dose: 1,000 mg Albuterol (Ventolin Hfa) 0 gm INH QID PRN PRN Reason: Shortness of Breath Albuterol (Ventolin Hfa) gm INH QID PRN PRN Reason: Shortness of Breath Albuterol/Ipratropium (Duoneb 3.0-0.5 Mg/3 Ml) 3 ml NEB ONETIME ONE Stop: 12/27/17 04:50 Last Admin: 12/27/17 05:17 Dose: 3 ml Ceftriaxone Sodium (Rocephin) 1 gm IVPUSH Q24H [facility] Last Admin: 12/27/17 06:50 Dose: 1 gm Azithromycin 500 mg/ Sodium (Chloride) 250 mls @ 250 mls/hr IV Q24H [facility] Last Admin: 12/27/17 06:49 Dose: 250 mls/hr Sodium Chloride (Normal Saline) 1,000 mls @ 75 mls/hr IV ASDIRECTED [facility] Stop: 12/28/17 06:00 Last Admin: 12/27/17 21:39 Dose: 75 mls/hr Iopamidol (Isovue-300 (61%)) 100 ml IVPUSH ONETIME ONE Stop: 12/27/17 11:10 Last Admin: 12/27/17 12:05 Dose: 100 ml Non-Formulary Medication (Budesonide/Formoterol) 2 puff INH BID [facility] Last Admin: 12/27/17 19:27 Dose: 2 puff Non-Formulary Medication (Cholecalciferol (Vitamin D3)) 5,000 unit PO DAILY [facility] Last Admin: 12/27/17 08:05 Dose: 5,000 unit Non-Formulary Medication (Omeprazole [Omeprazole]) 20 mg PO DAILY PRN PRN Reason: Heartburn Non-Formulary Medication (Warfarin [Coumadin]) 6 mg PO ASDIRECTED [facility] Warfarin Sodium (Coumadin) 4.5 mg PO ASDIRECTED [facility] - Exam General: Alert, Oriented HEENT: Mucous Membr. Moist/[place] Neck: Supple Lungs: Decreased Breath Sounds Cardiovascular: Regular Rate, Regular Rhythm GI/Abdominal Exam: Normal Bowel Sounds, Soft, Non-Tender Extremities: Normal Inspection, Pedal Edema (1+) Skin: Warm, Dry Neurological: No New Focal Deficit - Problem List & Annotations (1) Pneumonia SNOMED Code(s): 905672092 Code(s): J18.9 - PNEUMONIA, UNSPECIFIED ORGANISM Status: Acute Priority: High Current Visit: Yes - Problem List Review Problem List Initiated/Reviewed/Updated: Yes - Assessment Assessment:: Bilateral Pneumonia - Plan Plan:: This patient is an 87 year male that presented to the ER with shortness of breath and fever. The patient was diagnosed with pneumonia via chest xray. Rdiologist read CXR as clear lungs. CT was ordered and shows Bilateral lung pneumonia. The patient today reportshe is feleing better. He reports he is moving better air. Patient fever has been under control today. THe patient is sitting up in the bed conversing in full and complete sentences without difficulty. He continues with productive cough. He reports he is having some pain in his chest and lungs with coughing only. The patient is alert and oriented. The patient wbc has decreased some and the CRP has increased today. We will continue abx and breathing treatments and steroids. Patient will be seen by his PCP tomorrow. THe patient oxygen saturation is 96% on 2 L NC, and has improved as well. 12-29-2017 Patient states is feeling better, no direct answers when asked, just says "you know, my normal". Does have dyspnea with exertion, ie. toileting. Still on 2 liters of oxygen but sats at 96%. WBC stable today at 10.6, CRP improving at 16.6. Has been afebrile now. Appetite is good. Lung sounds diminished with fine expiratory wheezing. Wean off oxygen as able. Physical therapy for ambulation/strengthening. Continue Zithromax and Rocephin IV. Nebs. Solu Medrol. Repeat labs in am. 12-30-2017 Patient doing well. Has been weaned off oxygen now. Ambulating in the garcia, oxygen sat does drop to 90%. Continues to have productive cough with brown phlegm. WBC elevated at 15.1, CRP is improving, down to 7.8. Lung sounds clear today, diminished. Will continue with IV antibiotics for one more day. Continue to ambulate in the halls. Possible discharge home tomorrow.
[2017-12-31] MEDS: methylPREDNISolone Sodium Succinate 125 MG/2 ML SDV IVPUSH SCH (06:40)
[2017-12-31] MEDS: Albuterol/Ipratropium 3.0-0.5 MG/3 ML Neb Soln NEB SCH (07:39)
[2017-12-31] MEDS: Furosemide 40 MG Tab PO SCH (07:39)
[2017-12-31] MEDS: Azithromycin 500 MG in Sodium Chloride 0.9% 250 ML IV SCH (07:39)
[2017-12-31] MEDS: cefTRIAXone 1 GM Vial IVPUSH SCH (07:39)
[2017-12-31] MEDS: Montelukast 10 MG Tab PO SCH (07:40)
[2017-12-31] MEDS: Metoprolol Succinate 25 MG Tab.ER PO SCH (07:40)
[2017-12-31] MEDS: Cholecalciferol (Vitamin D3) 1,000 Unit Tab PO SCH (07:40)
[2017-12-31] MEDS: Aspirin 81 MG Tab.EC PO SCH (07:40)
[2017-12-31] MEDS: Formoterol/Mometasone 200-5 MCG 8.8 GM Inhaler IH SCH (07:41)
[2017-12-31] MEDS: Oxymetazoline 0.05% Nasal Spray 15 ML Bottle NASBOTH SCH (07:41)
[2017-12-31] MEDS: LYSINE HCL 1000 MG PO SCH (07:42)
[2017-12-31 07:43] VITALS: BP 125/61
[2017-12-31] MEDS: PYRIDOSTIGMINE 60 MG PO SCH (07:43)
[2017-12-31] MEDS: UBIDECARENONE 100 MG PO SCH (07:43)
--- NOTE | 2017-12-31 16:35 | PCM.DCSUM1 ---
Discharge Summary - Hospital Course Free Text/Narrative:: Kai is an 87 year old male that presented to the ER for increased cough and cold symptoms. He had been seen by Katerine in the clinic on the prior and had a chest xray and was sent home. At time of presentation to ER, was feeling more short of breath. Patient and poor historians on recall of time/length that he has been ill. Had been experiencing nasal congest and pressure as well. Cough frequent and productive at times. Oxygen sats 83% on room air. Temp was 99.1 in ER. WBC 10.3, CRP 8. Initial chest xray was read out by radiologist as negative so CT scan was done due to symptoms and showed possible infectious process in right lobes and left upper lobe. Admitted on IV Rocephin, Zithromax and nebs. Diagnosis: Stroke: No Modified [place] Scale: No Symptoms at All Modified [place] Scale Score: 0 - Discharge Data Discharge Date: 12/31/17 Discharge Disposition: Home, Self-Care 01 Condition: Good - Discharge Diagnosis/Problem(s) (1) Pneumonia SNOMED Code(s): 228702152 ICD Code: J18.9 - PNEUMONIA, UNSPECIFIED ORGANISM Status: Acute Priority : High - Patient Summary/Data Complications: none Consults: Consultations 12/27/17 05:59 Respiratory Care Assess and Treatment [CONS] Routine 12/29/17 09:03 Consult to Physical Therapy [PT Evaluation and Treatment] [CONS] Routine Hospital Course: Patient has had slow but good improvement of his overall status since admission. He has been receiving IV Rocephin and Zithromax as well as steroids were added. Nebulizer treatments QID. Did spike a temp on initial day of admit up to 103.3. Blood cultures were obtained and have been negative. Influenza screening negative in the ER. Patient has been slowly weaned off oxygen and is ambulating in the halls with sats remaining stable at 94% on room air. He does have a history of COPD that is typically controlled by BID nebs, has noted more air exchange with them by using QID. Productive cough but sputum culture negative. Labs did show peak in WBC to 16, but also on steroids. CRP has had good improvement over the last 4 days and is did peak at 20, down to 7.8 today. INR has remained stable. - Patient Instructions Diet: Usual Diet as Tolerated Activity: As Tolerated - Discharge Plan *PRESCRIPTION DRUG MONITORING PROGRAM REVIEWED*: No *COPY OF PRESCRIPTION DRUG MONITORING REPORT IN PATIENT MEG: No Prescriptions/Med Rec: Albuterol/Ipratropium [DuoNeb 3.0-0.5 MG/3 ML] 3 ml NEB QID #28 neb Cefuroxime Axetil [Ceftin] 250 mg PO BID #14 tablet predniSONE [Prednisone] 20 mg PO DAILY #5 tablet Home Medications: Home Meds Aspirin [Adult Low Dose Aspirin EC] 81 mg PO DAILY 04/09/13 [History] Budesonide/Formoterol [Symbicort 160-4.5 MCG] 2 puff INH BID 04/09/13 [History] Metoprolol Succinate 25 mg PO DAILY 04/09/13 [History] Omeprazole 20 mg PO DAILY PRN 04/09/13 [History] Pyridostigmine [Mestinon] 60 mg PO TID 04/09/13 [History] Simvastatin [Zocor] 10 mg PO BEDTIME 04/09/13 [History] Montelukast Sodium [Singulair] 10 mg PO DAILY 05/24/16 [History] Albuterol/Ipratropium [DuoNeb 3.0-0.5 MG/3 ML] 1 inh INH Q4H PRN 06/09/16 [ History] Lysine HCl [l-Lysine] 1,000 mg PO DAILY 06/09/16 [History] Promethazine HCl/Codeine [Prometh-Codein 6.25-10 mg/5 ml] 5 - 10 ml PO Q4H PRN 06/09/16 [History] Ubidecarenone [Coq-10] 100 mg PO DAILY 06/09/16 [History] Albuterol [Ventolin HFA] 2 puff INH QID PRN 03/17/17 [History] Cholecalciferol (Vitamin D3) [Vitamin D3] 5,000 unit PO DAILY 03/17/17 [History] Nitroglycerin 0.4 mg SL ASDIRECTED PRN 03/17/17 [History] Furosemide [Lasix] 40 mg PO DAILY #30 tablet 03/20/17 [Rx] Albuterol Sulfate [Proair Hfa] 2 puff INH QID PRN 12/27/17 [History] Oxymetazoline HCl [Afrin] 1 inh INH DAILY 12/27/17 [History] Warfarin [Coumadin] 4.5 mg PO DAILY 12/27/17 [History] Albuterol/Ipratropium [DuoNeb 3.0-0.5 MG/3 ML] 3 ml NEB QID #28 neb 12/31/17 [Rx ] Cefuroxime Axetil [Ceftin] 250 mg PO BID #14 tablet 12/31/17 [Rx] predniSONE [Prednisone] 20 mg PO DAILY #5 tablet 12/31/17 [Rx] Patient Handouts: Community-Acquired Pneumonia, Adult Forms: ED Department Discharge Referrals: Katerine Huertas, BACK OFFICE MEDICAL ASSISTANT [Primary Care Provider] - (Follow up with Katerine in [place] in 10 days ) - Discharge Summary/Plan Comment DC Time >30 min.: No Discharge Summary/Plan Comment: Discharge home Continue Ceftin 250 mg BID for 10 days Prednisone 20 mg daily for 5 days Continue QID DuoNebs Follow up with Katerine in 10 days for recheck - General Info Date of Service: 12/31/17 Admission Dx/Problem (Free Text: Bilateral Pneumonia Functional Status: Reports: Pain Controlled, Tolerating Diet, Ambulating - Review of Systems General: Reports: Weakness, Fatigue. Denies: Fever HEENT: Reports: Sinus Congestion, Rhinitis Pulmonary: Reports: Shortness of Breath, Cough, Sputum. Denies: Wheezing Cardiovascular: Reports: Edema. Denies: Chest Pain, Lightheadedness Gastrointestinal: Denies: Abdominal Pain, Nausea, Vomiting Genitourinary: Reports: No Symptoms Musculoskeletal: Reports: No Symptoms Skin: Reports: No Symptoms Neurological: Reports: No Symptoms - Patient Data Vitals - Most Recent: Last Vital Signs Temp 98.4 F 12/31/17 08:00 Pulse 74 12/31/17 08:00 Resp 18 12/31/17 08:00 BP 125/61 12/31/17 08:00 Pulse Ox 97 12/31/17 08:00 Weight - Most Recent: 184 lb 6.4 oz [facility]OFF Results - Last 24 hrs: Microbiology 12/29/17 17:30 Gram Stain - Final Sputum - Expectorated Sputum Culture - Final 12/27/17 05:10 Aerobic Blood Culture - Preliminary Blood - Venous - Lab Draw NO GROWTH AFTER 4 DAYS Anaerobic Blood Culture - Preliminary NO GROWTH AFTER 4 DAYS 12/27/17 05:10 Aerobic Blood Culture - Preliminary Blood - Venous NO GROWTH AFTER 4 DAYS Anaerobic Blood Culture - Preliminary NO GROWTH AFTER 4 DAYS Med Orders - Current: Current Medications Discontinued Medications Acetaminophen (Tylenol Extra Strength) 1,000 mg PO ONETIME ONE Stop: 12/27/17 04:47 Last Admin: 12/27/17 05:17 Dose: 1,000 mg Acetaminophen (Tylenol) 650 mg PO Q4H PRN PRN Reason: Pain (Mild 1-3)/fever Last Admin: 12/30/17 14:36 Dose: 650 mg Albuterol (Ventolin Hfa) 0 gm INH QID PRN PRN Reason: Shortness of Breath Albuterol (Ventolin Hfa) gm INH QID PRN PRN Reason: Shortness of Breath Albuterol (Ventolin Hfa) 1 - 2 gm INH QID PRN PRN Reason: Shortness of Breath Albuterol/Ipratropium (Duoneb 3.0-0.5 Mg/3 Ml) 3 ml NEB ONETIME ONE Stop: 12/27/17 04:50 Last Admin: 12/27/17 05:17 Dose: 3 ml Albuterol/Ipratropium (Duoneb 3.0-0.5 Mg/3 Ml) 3 ml NEB Q4H PRN PRN Reason: Shortness Of Breath/wheezing Albuterol/Ipratropium (Duoneb 3.0-0.5 Mg/3 Ml) 3 ml NEB QID [facility] Last Admin: 12/31/17 07:39 Dose: 3 ml Aspirin (Halfprin) 81 mg PO DAILY [facility] Last Admin: 12/31/17 07:40 Dose: 81 mg Ceftriaxone Sodium (Rocephin) 1 gm IVPUSH Q24H [facility] Last Admin: 12/27/17 06:50 Dose: 1 gm Ceftriaxone Sodium (Rocephin) 1 gm IVPUSH DAILY [facility] Last Admin: 12/31/17 07:39 Dose: 1 gm Cholecalciferol (Vitamin D3) 5,000 units PO DAILY [facility] Last Admin: 12/31/17 07:40 Dose: 5,000 units Docusate Sodium (Colace) 100 mg PO BID PRN PRN Reason: Constipation Furosemide (Lasix) 40 mg PO DAILY [facility] Last Admin: 12/31/17 07:39 Dose: 40 mg Guaifenesin/Codeine Phosphate (Robitussin Ac) 5 ml PO Q6H PRN PRN Reason: Cough Last Admin: 12/29/17 05:58 Dose: 5 ml Azithromycin 500 mg/ Sodium (Chloride) 250 mls @ 250 mls/hr IV Q24H [facility] Last Admin: 12/27/17 06:49 Dose: 250 mls/hr Sodium Chloride (Normal Saline) 1,000 mls @ 75 mls/hr IV ASDIRECTED [facility] Stop: 12/28/17 06:00 Last Admin: 12/27/17 21:39 Dose: 75 mls/hr Azithromycin 500 mg/ Sodium (Chloride) 250 mls @ 250 mls/hr IV DAILY [facility] Last Admin: 12/31/17 07:39 Dose: 250 mls/hr Ibuprofen (Motrin) 600 mg PO Q6H PRN PRN Reason: Pain (mild 1-3) Last Admin: 12/28/17 12:51 Dose: 600 mg Iopamidol (Isovue-300 (61%)) 100 ml IVPUSH ONETIME ONE Stop: 12/27/17 11:10 Last Admin: 12/27/17 12:05 Dose: 100 ml Methylprednisolone Sodium Succinate (Solu-Medrol) 62.5 mg IVPUSH Q12H [facility] Last Admin: 12/31/17 06:40 Dose: 62.5 mg Metoprolol Succinate (Toprol Xl) 25 mg PO DAILY [facility] Last Admin: 12/31/17 07:40 Dose: 25 mg Mometasone Furoate/Formoterol Fumar (Dulera 200-5 Mcg) 2 puff IH BIDRT [facility] Last Admin: 12/31/17 07:41 Dose: 2 puff Montelukast Sodium (Singulair) 10 mg PO DAILY [facility] Last Admin: 12/31/17 07:40 Dose: 10 mg Nitroglycerin (Nitrostat) 0.4 mg SL ASDIRECTED PRN PRN Reason: Chest Pain Non-Formulary Medication (Budesonide/Formoterol) 2 puff INH BID [facility] Last Admin: 12/27/17 19:27 Dose: 2 puff Non-Formulary Medication (Cholecalciferol (Vitamin D3)) 5,000 unit PO DAILY [facility] Last Admin: 12/27/17 08:05 Dose: 5,000 unit Patients Own( Lysine Hcl [L-Lysine ] 1,000 Mg) 1,000 mg PO DAILY [facility] Last Admin: 12/31/17 07:42 Dose: 1,000 mg Non-Formulary Medication (Omeprazole [Omeprazole]) 20 mg PO DAILY PRN PRN Reason: Heartburn Patients Own ( Pyridostigmine 60 Mg ) 60 mg PO TID [facility] Last Admin: 12/31/17 07:43 Dose: 60 mg Patients Own( Ubidecarenone [Coq- 10] 100 Mg) 100 mg PO DAILY [facility] Last Admin: 12/31/17 07:43 Dose: 100 mg Non-Formulary Medication (Warfarin [Coumadin]) 6 mg PO ASDIRECTED [facility] Ondansetron HCl (Zofran) 4 mg IV Q6H PRN PRN Reason: Nausea/Vomiting Oxymetazoline HCl (Afrin Original 0.05% Nasal [place]) 0 ml NASBOTH DAILY [facility] Last Admin: 12/31/17 07:41 Dose: 1 inhalation Pantoprazole Sodium (Protonix) 40 mg PO DAILY PRN PRN Reason: HEARTBURN Simvastatin (Zocor) 10 mg PO BEDTIME [facility] Last Admin: 12/30/17 19:47 Dose: 10 mg Warfarin Sodium (Coumadin) 4.5 mg PO ASDIRECTED [facility] Warfarin Sodium (Coumadin) 2.5 mg PO DAILY@1200 [facility] Last Admin: 12/30/17 12:37 Dose: 2.5 mg Warfarin Sodium (Coumadin) 2 mg PO DAILY@1200 [facility] Last Admin: 12/30/17 12:37 Dose: 2 mg - Exam General: Reports: Alert, Oriented HEENT: Reports: Mucous Membr. Moist/[place] Neck: Reports: Supple Lungs: Reports: Decreased Breath Sounds Cardiovascular: Reports: Regular Rate, Regular Rhythm GI/Abdominal Exam: Normal Bowel Sounds, Soft, Non-Tender Extremities: Normal Inspection, Pedal Edema (1+ LLE, trace RLE) Skin: Reports: Warm, Dry Neurological: Reports: No New Focal Deficit
== END 2017-12-31 10:45 | disposition home or self-care (01) | DRG 194 ==
LOC: CC.ED 04:20 → CC.MS 05:35
PROVIDERS: ADMIT Nurse Practitioner; ATTEND Family Medicine
DX: J18.9 Pneumonia, unspecified organism (principal); J44.0 Chronic obstructive pulmonary disease with (acute) lower respiratory infection; H54.7 Unspecified visual loss; I25.10 Atherosclerotic heart disease of native coronary artery without angina pectoris; E78.00 Pure hypercholesterolemia, unspecified; I10 Essential (primary) hypertension; N40.0 Benign prostatic hyperplasia without lower urinary tract symptoms; M19.90 Unspecified osteoarthritis, unspecified site; G89.29 Other chronic pain; J45.909 Unspecified asthma, uncomplicated; M54.9 Dorsalgia, unspecified; I25.2 Old myocardial infarction; Z90.49 Acquired absence of other specified parts of digestive tract; Z96.619 Presence of unspecified artificial shoulder joint; Z88.8 Allergy status to other drugs, medicaments and biological substances; Z79.82 Long term (current) use of aspirin; Z79.899 Other long term (current) drug therapy; Z79.01 Long term (current) use of anticoagulants; Z95.5 Presence of coronary angioplasty implant and graft; R05 Cough; R41.82 Altered mental status, unspecified; R06.02 Shortness of breath; R53.1 Weakness; R50.9 Fever, unspecified; Z86.711 Personal history of pulmonary embolism
CPT/HCPCS: 36415; 71046; 71260; 80048; 80053; 81001; 83605; 83880; 85025; 85610; 86140; 87040; 87070; 87205; 87804; 94640; 97110-GP; 97161-GP; 99285; A9270-GY; J0456; J0696; J2930; J7030; J7050; J7620-GY; Q9967